=== PATIENT | male | born 1975 | race American Indian/Alaskan Native ===

== ENCOUNTER 2018-11-18 09:23 | Outpatient (CLI) | payer MEDICARE ==
[2018-11-18] MEDS ORDERED: XYLOCAINE TOPICAL 4% TP ONE (09:41)
[2018-11-18] MEDS ORDERED: AD OINTMENT TP PRN (09:42)
== END 2018-11-18 09:24 | disposition home or self-care (01) ==
LOC: WOUND 09:23
PROVIDERS: ATTEND Surgery
DX: L97.812 Non-pressure chronic ulcer of other part of right lower leg with fat layer exposed (principal); I87.2 Venous insufficiency (chronic) (peripheral); I89.0 Lymphedema, not elsewhere classified
CPT/HCPCS: A6250

== ENCOUNTER 2018-11-28 10:24 | Outpatient (CLI) | payer MEDICARE ==
[2018-11-28] MEDS ORDERED: XYLOCAINE TOPICAL 4% TP ONE (12:15)
== END 2018-11-28 10:25 | disposition home or self-care (01) ==
LOC: WOUND 10:24
PROVIDERS: ATTEND Surgery
DX: I87.311 Chronic venous hypertension (idiopathic) with ulcer of right lower extremity (principal); L97.812 Non-pressure chronic ulcer of other part of right lower leg with fat layer exposed; E66.01 Morbid (severe) obesity due to excess calories; I89.0 Lymphedema, not elsewhere classified; I87.8 Other specified disorders of veins; Z68.45 Body mass index [BMI] 70 or greater, adult

== ENCOUNTER 2018-12-05 10:39 | Outpatient (CLI) | payer MEDICARE ==
[~2018-12-05 10:39] MED LIST: ZOSYN/NS 4.5GM/100ML 0 GM/0 ML VIAL IV ONE
[2018-12-05] MEDS ORDERED: XYLOCAINE TOPICAL 4% TP ONE (10:55)
[2018-12-05] MEDS ORDERED: AD OINTMENT TP PRN (10:55)
[2018-12-05] MEDS ORDERED: SILVER NITRATE TP ONE (10:56)
== END 2018-12-05 10:40 | disposition home or self-care (01) ==
LOC: WOUND 10:39
PROVIDERS: ATTEND Surgery
DX: I87.311 Chronic venous hypertension (idiopathic) with ulcer of right lower extremity (principal); L97.812 Non-pressure chronic ulcer of other part of right lower leg with fat layer exposed; I89.0 Lymphedema, not elsewhere classified; E66.01 Morbid (severe) obesity due to excess calories; Z68.45 Body mass index [BMI] 70 or greater, adult
CPT/HCPCS: A6250; J2543

== ENCOUNTER 2018-12-12 10:38 | Outpatient (CLI) | payer MEDICARE ==
[2018-12-12] MEDS ORDERED: XYLOCAINE TOPICAL 4% TP ONE (11:00)
== END 2018-12-12 10:39 | disposition home or self-care (01) ==
LOC: WOUND 10:38
PROVIDERS: ATTEND Surgery
DX: I87.311 Chronic venous hypertension (idiopathic) with ulcer of right lower extremity (principal); L97.812 Non-pressure chronic ulcer of other part of right lower leg with fat layer exposed; L84 Corns and callosities; E66.01 Morbid (severe) obesity due to excess calories; Z68.45 Body mass index [BMI] 70 or greater, adult; I89.0 Lymphedema, not elsewhere classified

== ENCOUNTER 2018-12-17 10:50 | Outpatient (CLI) | payer MEDICARE ==
--- NOTE | 2018-12-17 17:24 | Vascular Lab Report ---
FINAL REPORT EXAM: VL VENOUS DUPLEX LE BILAT HISTORY: Chronic venous hypertension(idiopathic)with ulcer of right lower history of DVT TECHNIQUE: Grayscale, color flow and Doppler waveform imaging of the lower extremities was performed . Comparison: None FINDINGS: The study is degraded by artifact a created by body habitus. Right lower extremity: Flow is demonstrated in the right common femoral, superficial femoral and popliteal veins. There is incomplete compression of the common femoral and superficial femoral veins. There is demonstration of augmentation in the common femoral, superficial and popliteal veins with ev idence of reflux with augmentation at the level of the popliteal vein. There is a hypoechoic structure in the right groin that measures approximately 2.5 centimeters x 1.4 centimeters 7.8 centimeters in the maximal dimension and demonstrates the the central increased echog enicity and central flow. This may represent an enlarged lymph node or group of lymph nodes. Left lower extremity: Flow is demonstrated in the left common femoral, superficial femoral and popliteal veins. There is incomplete compression of the common femoral vein. There is demonstration of augmentation in the common femoral, superficial femoral and popliteal veins with evidence of reflux with augmentation at the level of the popliteal vein. There is a hypoechoic structure in the left groin that measures approximately 2.5 centimeters in the maximum dimension with central flow. This may represent an enlarged lymph node. IMPRESSION: 1. Study degraded by artifact created by large body habitus. 2. Findings suggestive of incomplete occlusive acute DVT versus sequela of chronic DVT in the right c ommon femoral and superficial femoral veins and left common femoral vein. 3. Evidence of venous insufficiency at the level of the popliteal veins bilaterally. 4. Probable bilateral inguinal adenopathy. Comparison with previous imaging studies is recommended.
== END 2018-12-17 10:51 | disposition home or self-care (01) ==
LOC: VAS 10:50
PROVIDERS: ATTEND Surgery
DX: E66.01 Morbid (severe) obesity due to excess calories (principal); I87.311 Chronic venous hypertension (idiopathic) with ulcer of right lower extremity
CPT/HCPCS: 93970

== ENCOUNTER 2018-12-26 10:32 | Outpatient (CLI) | payer MEDICARE | END 2018-12-26 10:33 | disposition home or self-care (01) | LOC: WOUND 10:32 | CPT/HCPCS: 29580 ==

== ENCOUNTER 2018-12-30 13:18 | Outpatient (CLI) | payer MEDICARE | END 2018-12-30 13:19 | disposition home or self-care (01) | LOC: WOUND 13:18 | CPT/HCPCS: 29580 ==

== ENCOUNTER 2019-01-02 10:36 | Outpatient (CLI) | payer MEDICARE | END 2019-01-02 10:37 | disposition home or self-care (01) | LOC: WOUND 10:36 ==

== ENCOUNTER 2019-01-09 10:23 | Outpatient (CLI) | payer MEDICARE | END 2019-01-09 10:24 | disposition home or self-care (01) | LOC: WOUND 10:23 | CPT/HCPCS: 29581 ==

== ENCOUNTER 2019-01-13 13:49 | Outpatient (CLI) | payer MEDICARE | END 2019-01-13 13:50 | disposition home or self-care (01) | LOC: WOUND 13:49 | CPT/HCPCS: 29581 ==

== ENCOUNTER 2019-01-16 10:29 | Outpatient (CLI) | payer MEDICARE ==
[2019-01-16] MEDS ORDERED: XYLOCAINE TOPICAL 4% TP ONE (10:37)
== END 2019-01-16 10:30 | disposition home or self-care (01) ==
LOC: WOUND 10:29
PROVIDERS: ATTEND Surgery
DX: I87.311 Chronic venous hypertension (idiopathic) with ulcer of right lower extremity (principal); L97.811 Non-pressure chronic ulcer of other part of right lower leg limited to breakdown of skin; E66.01 Morbid (severe) obesity due to excess calories; I89.0 Lymphedema, not elsewhere classified; Z68.45 Body mass index [BMI] 70 or greater, adult
CPT/HCPCS: 29581

== ENCOUNTER 2019-01-23 10:33 | Outpatient (CLI) | payer MEDICARE ==
[2019-01-23] MEDS ORDERED: XYLOCAINE TOPICAL 4% TP ONE (11:30)
== END 2019-01-23 10:34 | disposition home or self-care (01) ==
LOC: WOUND 10:33
PROVIDERS: ATTEND Surgery
DX: I87.311 Chronic venous hypertension (idiopathic) with ulcer of right lower extremity (principal); L97.811 Non-pressure chronic ulcer of other part of right lower leg limited to breakdown of skin; E66.01 Morbid (severe) obesity due to excess calories; I89.0 Lymphedema, not elsewhere classified; Z68.44 Body mass index [BMI] 60.0-69.9, adult
CPT/HCPCS: 29581

== ENCOUNTER 2019-01-27 13:48 | Outpatient (CLI) | payer MEDICARE | END 2019-01-27 13:49 | disposition home or self-care (01) | LOC: WOUND 13:48 | CPT/HCPCS: 29580 ==

== ENCOUNTER 2019-01-30 09:54 | Outpatient (CLI) | payer MEDICARE ==
[2019-01-30] MEDS ORDERED: AD OINTMENT TP PRN (10:00)
[2019-01-30] MEDS ORDERED: XYLOCAINE TOPICAL 4% TP ONE (11:00)
== END 2019-01-30 09:55 | disposition home or self-care (01) ==
LOC: WOUND 09:54
PROVIDERS: ATTEND Surgery
DX: I87.311 Chronic venous hypertension (idiopathic) with ulcer of right lower extremity (principal); L97.812 Non-pressure chronic ulcer of other part of right lower leg with fat layer exposed; E66.01 Morbid (severe) obesity due to excess calories; I87.8 Other specified disorders of veins; I89.0 Lymphedema, not elsewhere classified; Z68.44 Body mass index [BMI] 60.0-69.9, adult
CPT/HCPCS: 29580; A6250

== ENCOUNTER 2019-02-03 13:27 | Outpatient (CLI) | payer MEDICARE | END 2019-02-03 13:28 | disposition home or self-care (01) | LOC: WOUND 13:27 | PROVIDERS: ATTEND Surgery | DX: I87.311 Chronic venous hypertension (idiopathic) with ulcer of right lower extremity (principal); L97.811 Non-pressure chronic ulcer of other part of right lower leg limited to breakdown of skin; I87.8 Other specified disorders of veins; I89.0 Lymphedema, not elsewhere classified; E66.01 Morbid (severe) obesity due to excess calories; Z68.44 Body mass index [BMI] 60.0-69.9, adult | CPT/HCPCS: 29580 ==

== ENCOUNTER 2019-02-07 10:26 | Outpatient (CLI) | payer MEDICARE ==
[2019-02-07] MEDS ORDERED: XYLOCAINE TOPICAL 4% TP ONE (10:39)
[2019-02-08] MEDS ORDERED: AD OINTMENT TP SCH (10:00)
== END 2019-02-07 10:27 | disposition home or self-care (01) ==
LOC: WOUND 10:26
PROVIDERS: ATTEND Surgery
DX: I87.311 Chronic venous hypertension (idiopathic) with ulcer of right lower extremity (principal); L97.812 Non-pressure chronic ulcer of other part of right lower leg with fat layer exposed; I87.8 Other specified disorders of veins; I89.0 Lymphedema, not elsewhere classified; E66.01 Morbid (severe) obesity due to excess calories; Z68.44 Body mass index [BMI] 60.0-69.9, adult
CPT/HCPCS: 29581

== ENCOUNTER 2019-02-10 13:42 | Outpatient (CLI) | payer MEDICARE | END 2019-02-10 13:43 | disposition home or self-care (01) | LOC: WOUND 13:42 | PROVIDERS: ATTEND Surgery | DX: I87.311 Chronic venous hypertension (idiopathic) with ulcer of right lower extremity (principal); L97.812 Non-pressure chronic ulcer of other part of right lower leg with fat layer exposed; I89.0 Lymphedema, not elsewhere classified; E66.01 Morbid (severe) obesity due to excess calories; Z68.44 Body mass index [BMI] 60.0-69.9, adult | CPT/HCPCS: 29581 ==

== ENCOUNTER 2019-02-13 10:33 | Outpatient (CLI) | payer MEDICARE | END 2019-02-13 10:34 | disposition home or self-care (01) | LOC: WOUND 10:33 | PROVIDERS: ATTEND Surgery | DX: I87.311 Chronic venous hypertension (idiopathic) with ulcer of right lower extremity (principal); L97.812 Non-pressure chronic ulcer of other part of right lower leg with fat layer exposed; E66.01 Morbid (severe) obesity due to excess calories; I87.8 Other specified disorders of veins; I89.0 Lymphedema, not elsewhere classified; Z68.44 Body mass index [BMI] 60.0-69.9, adult | CPT/HCPCS: 29581 ==

== ENCOUNTER 2019-02-17 13:53 | Outpatient (CLI) | payer MEDICARE ==
[2019-02-17] MEDS ORDERED: AD OINTMENT TP SCH (15:00)
[2019-02-17] MEDS ORDERED: XYLOCAINE TOPICAL 4% TP ONE (15:00)
[2019-02-17] MEDS ORDERED: DIPRIVAN 10 MG/ML IV ONE (15:14)
[2019-02-17] MEDS ORDERED: DECADRON ONE (15:14)
[2019-02-17] MEDS ORDERED: SUBLIMAZE ONE (15:14)
[2019-02-17] MEDS ORDERED: ZOFRAN ONE (15:14)
[2019-02-17] MEDS ORDERED: XYLOCAINE MPF 2% ONE (15:14)
[2019-02-17] MEDS ORDERED: TORADOL ONE (15:14)
== END 2019-02-17 13:54 | disposition home or self-care (01) ==
LOC: WOUND 13:53
PROVIDERS: ATTEND Surgery
DX: I87.311 Chronic venous hypertension (idiopathic) with ulcer of right lower extremity (principal); L97.812 Non-pressure chronic ulcer of other part of right lower leg with fat layer exposed; E66.01 Morbid (severe) obesity due to excess calories; I87.8 Other specified disorders of veins; I89.0 Lymphedema, not elsewhere classified; Z68.44 Body mass index [BMI] 60.0-69.9, adult
CPT/HCPCS: 29581; J1100; J1885; J2405; J2704; J3010

== ENCOUNTER 2019-02-20 10:30 | Outpatient (CLI) | payer MEDICARE ==
[2019-02-20] MEDS ORDERED: XYLOCAINE TOPICAL 4% TP NR (11:00)
[2019-02-20] MEDS ORDERED: AD OINTMENT TP PRN (11:00)
== END 2019-02-20 10:31 | disposition home or self-care (01) ==
LOC: WOUND 10:30
PROVIDERS: ATTEND Surgery
DX: I87.311 Chronic venous hypertension (idiopathic) with ulcer of right lower extremity (principal); L97.812 Non-pressure chronic ulcer of other part of right lower leg with fat layer exposed; E66.01 Morbid (severe) obesity due to excess calories; I87.8 Other specified disorders of veins; I89.0 Lymphedema, not elsewhere classified; Z68.44 Body mass index [BMI] 60.0-69.9, adult
CPT/HCPCS: 29581; A6250

== ENCOUNTER 2019-02-25 11:33 | Outpatient (CLI) | payer MEDICARE | END 2019-02-25 11:34 | disposition home or self-care (01) | LOC: WOUND 11:33 | PROVIDERS: ATTEND Surgery | DX: I87.311 Chronic venous hypertension (idiopathic) with ulcer of right lower extremity (principal); L97.812 Non-pressure chronic ulcer of other part of right lower leg with fat layer exposed; E66.01 Morbid (severe) obesity due to excess calories; I87.8 Other specified disorders of veins; I89.0 Lymphedema, not elsewhere classified; Z68.44 Body mass index [BMI] 60.0-69.9, adult | CPT/HCPCS: 29581 ==

== ENCOUNTER 2019-03-04 12:35 | Outpatient (CLI) | payer MEDICARE ==
[2019-03-04] MEDS ORDERED: AD OINTMENT TP SCH (13:00)
== END 2019-03-04 12:36 | disposition home or self-care (01) ==
LOC: WOUND 12:35
PROVIDERS: ATTEND Surgery
DX: I87.311 Chronic venous hypertension (idiopathic) with ulcer of right lower extremity (principal); L97.812 Non-pressure chronic ulcer of other part of right lower leg with fat layer exposed; E66.01 Morbid (severe) obesity due to excess calories; I87.8 Other specified disorders of veins; I89.0 Lymphedema, not elsewhere classified; Z68.44 Body mass index [BMI] 60.0-69.9, adult
CPT/HCPCS: 29581; A6250

== ENCOUNTER 2019-03-06 11:00 | Outpatient (CLI) | payer MEDICARE ==
[2019-03-06] MEDS ORDERED: XYLOCAINE TOPICAL 2% 30ML TP ONE (12:06)
== END 2019-03-06 11:01 | disposition home or self-care (01) ==
LOC: WOUND 11:00
PROVIDERS: ATTEND Surgery
DX: I87.311 Chronic venous hypertension (idiopathic) with ulcer of right lower extremity (principal); L97.812 Non-pressure chronic ulcer of other part of right lower leg with fat layer exposed; E66.01 Morbid (severe) obesity due to excess calories; I87.8 Other specified disorders of veins; I89.0 Lymphedema, not elsewhere classified; Z68.44 Body mass index [BMI] 60.0-69.9, adult
CPT/HCPCS: 29581

== ENCOUNTER 2019-03-13 10:38 | Outpatient (CLI) | payer MEDICARE | END 2019-03-13 10:39 | disposition home or self-care (01) | LOC: WOUND 10:38 | PROVIDERS: ATTEND Surgery | DX: I87.311 Chronic venous hypertension (idiopathic) with ulcer of right lower extremity (principal); L97.812 Non-pressure chronic ulcer of other part of right lower leg with fat layer exposed; I87.8 Other specified disorders of veins; I89.0 Lymphedema, not elsewhere classified; E66.01 Morbid (severe) obesity due to excess calories; Z68.44 Body mass index [BMI] 60.0-69.9, adult | CPT/HCPCS: 29581 ==

== ENCOUNTER 2019-03-20 10:28 | Outpatient (CLI) | payer MEDICARE | END 2019-03-20 10:29 | disposition home or self-care (01) | LOC: WOUND 10:28 | PROVIDERS: ATTEND Surgery | DX: I87.311 Chronic venous hypertension (idiopathic) with ulcer of right lower extremity (principal); L97.812 Non-pressure chronic ulcer of other part of right lower leg with fat layer exposed; I89.0 Lymphedema, not elsewhere classified; E66.01 Morbid (severe) obesity due to excess calories; Z68.44 Body mass index [BMI] 60.0-69.9, adult | CPT/HCPCS: 29581 ==

== ENCOUNTER 2019-03-27 10:19 | Outpatient (CLI) | payer MEDICARE | END 2019-03-27 10:20 | disposition home or self-care (01) | LOC: WOUND 10:19 | PROVIDERS: ATTEND Surgery | DX: I87.311 Chronic venous hypertension (idiopathic) with ulcer of right lower extremity (principal); L97.812 Non-pressure chronic ulcer of other part of right lower leg with fat layer exposed; I89.0 Lymphedema, not elsewhere classified; E66.01 Morbid (severe) obesity due to excess calories; Z68.44 Body mass index [BMI] 60.0-69.9, adult | CPT/HCPCS: 29581 ==

== ENCOUNTER 2019-04-01 14:03 | Outpatient (CLI) | payer MEDICARE | END 2019-04-01 14:04 | disposition home or self-care (01) | LOC: WOUND 14:03 | PROVIDERS: ATTEND Surgery | DX: I87.311 Chronic venous hypertension (idiopathic) with ulcer of right lower extremity (principal); L97.812 Non-pressure chronic ulcer of other part of right lower leg with fat layer exposed; I89.0 Lymphedema, not elsewhere classified; E66.01 Morbid (severe) obesity due to excess calories; Z68.44 Body mass index [BMI] 60.0-69.9, adult | CPT/HCPCS: 29581 ==

== ENCOUNTER 2019-04-03 10:35 | Outpatient (CLI) | payer MEDICARE | END 2019-04-03 10:36 | disposition home or self-care (01) | LOC: WOUND 10:35 | PROVIDERS: ATTEND Surgery | DX: I87.311 Chronic venous hypertension (idiopathic) with ulcer of right lower extremity (principal); L97.812 Non-pressure chronic ulcer of other part of right lower leg with fat layer exposed; I89.0 Lymphedema, not elsewhere classified; E66.01 Morbid (severe) obesity due to excess calories; Z68.44 Body mass index [BMI] 60.0-69.9, adult | CPT/HCPCS: 29581 ==

== ENCOUNTER 2019-04-07 13:23 | Outpatient (CLI) | payer MEDICARE | END 2019-04-07 13:24 | disposition home or self-care (01) | LOC: WOUND 13:23 | PROVIDERS: ATTEND Surgery | DX: I87.311 Chronic venous hypertension (idiopathic) with ulcer of right lower extremity (principal); L97.812 Non-pressure chronic ulcer of other part of right lower leg with fat layer exposed; I89.0 Lymphedema, not elsewhere classified; E66.01 Morbid (severe) obesity due to excess calories; Z68.44 Body mass index [BMI] 60.0-69.9, adult | CPT/HCPCS: 29581 ==

== ENCOUNTER 2019-04-10 10:33 | Outpatient (CLI) | payer MEDICARE | END 2019-04-10 10:34 | disposition home or self-care (01) | LOC: WOUND 10:33 | PROVIDERS: ATTEND Surgery | DX: I87.311 Chronic venous hypertension (idiopathic) with ulcer of right lower extremity (principal); L97.818 Non-pressure chronic ulcer of other part of right lower leg with other specified severity; I87.2 Venous insufficiency (chronic) (peripheral); I89.0 Lymphedema, not elsewhere classified; E66.01 Morbid (severe) obesity due to excess calories; Z68.44 Body mass index [BMI] 60.0-69.9, adult | CPT/HCPCS: 29581 ==

== ENCOUNTER 2019-04-17 11:00 | Outpatient (CLI) | payer MEDICARE | END 2019-04-17 11:01 | disposition home or self-care (01) | LOC: WOUND 11:00 | PROVIDERS: ATTEND Surgery | DX: S81.801D Unspecified open wound, right lower leg, subsequent encounter (principal); I89.0 Lymphedema, not elsewhere classified; X58.XXXD Exposure to other specified factors, subsequent encounter | CPT/HCPCS: 29581 ==

== ENCOUNTER 2019-06-18 08:16 | Outpatient (CLI) | payer MEDICARE ==
[2019-06-18] MEDS ORDERED: XYLOCAINE TOPICAL 4% TP ONE (09:00)
== END 2019-06-18 08:17 | disposition home or self-care (01) ==
LOC: WOUND 08:16
PROVIDERS: ATTEND Surgery
DX: S81.801D Unspecified open wound, right lower leg, subsequent encounter (principal); I89.0 Lymphedema, not elsewhere classified; X58.XXXD Exposure to other specified factors, subsequent encounter
CPT/HCPCS: 29581

== ENCOUNTER 2019-06-25 07:50 | Outpatient (CLI) | payer MEDICARE ==
[2019-06-25] MEDS ORDERED: XYLOCAINE TOPICAL 4% TP ONE (08:30)
== END 2019-06-25 07:51 | disposition home or self-care (01) ==
LOC: WOUND 07:50
PROVIDERS: ATTEND Surgery
DX: S81.801D Unspecified open wound, right lower leg, subsequent encounter (principal); I89.0 Lymphedema, not elsewhere classified; X58.XXXD Exposure to other specified factors, subsequent encounter
CPT/HCPCS: 29580

== ENCOUNTER 2019-07-02 07:50 | Outpatient (CLI) | payer MEDICARE ==
[2019-07-02] MEDS ORDERED: XYLOCAINE TOPICAL 4% TP ONE (08:30)
== END 2019-07-02 07:51 | disposition home or self-care (01) ==
LOC: WOUND 07:50
PROVIDERS: ATTEND Surgery
DX: S81.801D Unspecified open wound, right lower leg, subsequent encounter (principal); I89.0 Lymphedema, not elsewhere classified; X58.XXXD Exposure to other specified factors, subsequent encounter
CPT/HCPCS: 29580

== ENCOUNTER 2019-07-09 07:49 | Outpatient (CLI) | payer MEDICARE | END 2019-07-09 07:50 | disposition home or self-care (01) | LOC: WOUND 07:49 | PROVIDERS: ATTEND Surgery | DX: S81.801D Unspecified open wound, right lower leg, subsequent encounter (principal); I89.0 Lymphedema, not elsewhere classified; X58.XXXD Exposure to other specified factors, subsequent encounter | CPT/HCPCS: 29581 ==

== ENCOUNTER 2019-07-17 07:53 | Outpatient (CLI) | payer MEDICARE | END 2019-07-17 07:54 | disposition home or self-care (01) | LOC: WOUND 07:53 | PROVIDERS: ATTEND Surgery | DX: S81.801D Unspecified open wound, right lower leg, subsequent encounter (principal); I89.0 Lymphedema, not elsewhere classified; X58.XXXD Exposure to other specified factors, subsequent encounter | CPT/HCPCS: 29581 ==

== ENCOUNTER 2019-07-21 12:50 | Outpatient (CLI) | payer MEDICARE | END 2019-07-21 12:51 | disposition home or self-care (01) | LOC: WOUND 12:50 | PROVIDERS: ATTEND Surgery | DX: S81.801D Unspecified open wound, right lower leg, subsequent encounter (principal); I89.0 Lymphedema, not elsewhere classified; X58.XXXD Exposure to other specified factors, subsequent encounter | CPT/HCPCS: 29581 ==

== ENCOUNTER 2019-07-24 07:54 | Outpatient (CLI) | payer MEDICARE | END 2019-07-24 07:55 | disposition home or self-care (01) | LOC: WOUND 07:54 | PROVIDERS: ATTEND Surgery | DX: S81.801D Unspecified open wound, right lower leg, subsequent encounter (principal); I89.0 Lymphedema, not elsewhere classified; X58.XXXD Exposure to other specified factors, subsequent encounter | CPT/HCPCS: 29581 ==

== ENCOUNTER 2019-08-07 07:58 | Outpatient (CLI) | payer MEDICARE ==
[2019-08-07] MEDS ORDERED: LIDOCAINE (4%) 40 MG/ML TOPICAL SOLN 50 ML BOTTLE TP ONE (08:30)
[2019-08-07] MEDS ORDERED: SILVER NITRATE APPLICATOR 1 EA TP ONE (08:30)
== END 2019-08-07 07:59 | disposition home or self-care (01) ==
LOC: WOUND 07:58
PROVIDERS: ATTEND Surgery
DX: S81.801D Unspecified open wound, right lower leg, subsequent encounter (principal); I89.0 Lymphedema, not elsewhere classified; X58.XXXD Exposure to other specified factors, subsequent encounter
CPT/HCPCS: 29581

== ENCOUNTER 2019-11-19 09:57 | Outpatient (CLI) | payer MEDICARE ==
[2019-11-19] MEDS ORDERED: LIDOCAINE (4%) 40 MG/ML TOPICAL SOLN 50 ML BOTTLE TP ONE (10:30)
[2019-11-19] MEDS ORDERED: VITAMIN A & D OINT 56.7 GM TP SCH (11:00)
== END 2019-11-19 09:58 | disposition home or self-care (01) ==
LOC: WOUND 09:57
PROVIDERS: ATTEND Surgery
DX: S81.801D Unspecified open wound, right lower leg, subsequent encounter (principal); I89.0 Lymphedema, not elsewhere classified; X58.XXXD Exposure to other specified factors, subsequent encounter
CPT/HCPCS: 11042; 11045; 29581; G0463; 99214; A6250

== ENCOUNTER 2019-11-26 10:00 | Outpatient (CLI) | payer MEDICARE ==
[2019-11-26] MEDS ORDERED: LIDOCAINE (4%) 40 MG/ML TOPICAL SOLN 50 ML BOTTLE TP ONE (10:30)
== END 2019-11-26 10:01 | disposition home or self-care (01) ==
LOC: WOUND 10:00
PROVIDERS: ATTEND Surgery
DX: I87.311 Chronic venous hypertension (idiopathic) with ulcer of right lower extremity (principal); L97.812 Non-pressure chronic ulcer of other part of right lower leg with fat layer exposed; I89.0 Lymphedema, not elsewhere classified
CPT/HCPCS: 29581

== ENCOUNTER 2019-11-28 11:00 | Outpatient (CLI) | payer MEDICARE | END 2019-11-28 11:01 | disposition home or self-care (01) | LOC: WOUND 11:00 | PROVIDERS: ATTEND Surgery | DX: I87.311 Chronic venous hypertension (idiopathic) with ulcer of right lower extremity (principal); L97.812 Non-pressure chronic ulcer of other part of right lower leg with fat layer exposed; I89.0 Lymphedema, not elsewhere classified | CPT/HCPCS: 29581 ==

== ENCOUNTER 2019-12-03 09:13 | Outpatient (CLI) | payer MEDICARE ==
[2019-12-03] MEDS ORDERED: LIDOCAINE (4%) 40 MG/ML TOPICAL SOLN 50 ML BOTTLE TP ONE (10:00)
== END 2019-12-03 09:14 | disposition home or self-care (01) ==
LOC: WOUND 09:13
PROVIDERS: ATTEND Surgery
DX: I87.311 Chronic venous hypertension (idiopathic) with ulcer of right lower extremity (principal); L97.812 Non-pressure chronic ulcer of other part of right lower leg with fat layer exposed; I89.0 Lymphedema, not elsewhere classified
CPT/HCPCS: 29581

== ENCOUNTER 2019-12-05 13:46 | Outpatient (CLI) | payer MEDICARE | END 2019-12-05 13:47 | disposition home or self-care (01) | LOC: WOUND 13:46 | PROVIDERS: ATTEND Surgery | DX: I87.311 Chronic venous hypertension (idiopathic) with ulcer of right lower extremity (principal); L97.812 Non-pressure chronic ulcer of other part of right lower leg with fat layer exposed; I89.0 Lymphedema, not elsewhere classified | CPT/HCPCS: 29581 ==

== ENCOUNTER 2019-12-16 13:57 | Outpatient (CLI) | payer MEDICARE ==
[2019-12-16] MEDS ORDERED: LIDOCAINE (4%) 40 MG/ML TOPICAL SOLN 50 ML BOTTLE TP ONE (13:59)
[2019-12-16] MEDS ORDERED: SILVER NITRATE APPLICATOR 1 EA TP ONE (14:16)
== END 2019-12-16 13:58 | disposition home or self-care (01) ==
LOC: WOUND 13:57
PROVIDERS: ATTEND Surgery
DX: I87.311 Chronic venous hypertension (idiopathic) with ulcer of right lower extremity (principal); L97.812 Non-pressure chronic ulcer of other part of right lower leg with fat layer exposed; I89.0 Lymphedema, not elsewhere classified
CPT/HCPCS: 29581

== ENCOUNTER 2019-12-23 09:51 | Outpatient (CLI) | payer MEDICARE ==
[2019-12-23] MEDS ORDERED: LIDOCAINE (4%) 40 MG/ML TOPICAL SOLN 50 ML BOTTLE TP ONE (10:30)
== END 2019-12-23 09:52 | disposition home or self-care (01) ==
LOC: WOUND 09:51
PROVIDERS: ATTEND Surgery
DX: I87.311 Chronic venous hypertension (idiopathic) with ulcer of right lower extremity (principal); L97.812 Non-pressure chronic ulcer of other part of right lower leg with fat layer exposed; I89.0 Lymphedema, not elsewhere classified
CPT/HCPCS: 29581

== ENCOUNTER 2019-12-26 13:47 | Outpatient (CLI) | payer MEDICARE | END 2019-12-26 13:48 | disposition home or self-care (01) | LOC: WOUND 13:47 | PROVIDERS: ATTEND Surgery | DX: I87.311 Chronic venous hypertension (idiopathic) with ulcer of right lower extremity (principal); L97.812 Non-pressure chronic ulcer of other part of right lower leg with fat layer exposed; I89.0 Lymphedema, not elsewhere classified | CPT/HCPCS: 29581 ==

== ENCOUNTER 2019-12-30 09:57 | Outpatient (CLI) | payer MEDICARE ==
[2019-12-30] MEDS ORDERED: LIDOCAINE (4%) 40 MG/ML TOPICAL SOLN 50 ML BOTTLE TP ONE (10:46)
== END 2019-12-30 09:58 | disposition home or self-care (01) ==
LOC: WOUND 09:57
PROVIDERS: ATTEND Surgery
DX: I87.311 Chronic venous hypertension (idiopathic) with ulcer of right lower extremity (principal); L97.812 Non-pressure chronic ulcer of other part of right lower leg with fat layer exposed; I89.0 Lymphedema, not elsewhere classified
CPT/HCPCS: 29581

== ENCOUNTER 2020-01-02 14:02 | Outpatient (CLI) | payer MEDICARE | END 2020-01-02 14:03 | disposition home or self-care (01) | LOC: WOUND 14:02 | PROVIDERS: ATTEND Surgery | DX: I87.311 Chronic venous hypertension (idiopathic) with ulcer of right lower extremity (principal); L97.812 Non-pressure chronic ulcer of other part of right lower leg with fat layer exposed; I89.0 Lymphedema, not elsewhere classified | CPT/HCPCS: 29581 ==

== ENCOUNTER 2020-01-06 09:51 | Outpatient (CLI) | payer MEDICARE ==
[2020-01-06] MEDS ORDERED: LIDOCAINE (4%) 40 MG/ML TOPICAL SOLN 50 ML BOTTLE TP SCH (10:15)
== END 2020-01-06 09:52 | disposition home or self-care (01) ==
LOC: WOUND 09:51
PROVIDERS: ATTEND Surgery
DX: I87.311 Chronic venous hypertension (idiopathic) with ulcer of right lower extremity (principal); L97.812 Non-pressure chronic ulcer of other part of right lower leg with fat layer exposed; I89.0 Lymphedema, not elsewhere classified
CPT/HCPCS: 29581

== ENCOUNTER 2020-01-16 13:48 | Outpatient (CLI) | payer MEDICARE | END 2020-01-16 13:49 | disposition home or self-care (01) | LOC: WOUND 13:48 | PROVIDERS: ATTEND Surgery | DX: I87.311 Chronic venous hypertension (idiopathic) with ulcer of right lower extremity (principal); L97.812 Non-pressure chronic ulcer of other part of right lower leg with fat layer exposed; I89.0 Lymphedema, not elsewhere classified | CPT/HCPCS: 99213; G0463 ==

== ENCOUNTER 2020-01-23 14:30 | Outpatient (CLI) | payer MEDICARE | END 2020-01-23 14:31 | disposition home or self-care (01) | LOC: WOUND 14:30 | PROVIDERS: ATTEND Surgery | DX: I87.311 Chronic venous hypertension (idiopathic) with ulcer of right lower extremity (principal); L97.812 Non-pressure chronic ulcer of other part of right lower leg with fat layer exposed; I89.0 Lymphedema, not elsewhere classified | CPT/HCPCS: 29581 ==

== ENCOUNTER 2020-01-30 12:48 | Outpatient (CLI) | payer MEDICARE | END 2020-01-30 12:49 | disposition home or self-care (01) | LOC: WOUND 12:48 | PROVIDERS: ATTEND Surgery | DX: I87.311 Chronic venous hypertension (idiopathic) with ulcer of right lower extremity (principal); L97.812 Non-pressure chronic ulcer of other part of right lower leg with fat layer exposed; I89.0 Lymphedema, not elsewhere classified; I87.2 Venous insufficiency (chronic) (peripheral) | CPT/HCPCS: 29581 ==

== ENCOUNTER 2020-02-03 08:43 | Outpatient (CLI) | payer MEDICARE | END 2020-02-03 08:44 | disposition home or self-care (01) | LOC: WOUND 08:43 | PROVIDERS: ATTEND Surgery | DX: I87.311 Chronic venous hypertension (idiopathic) with ulcer of right lower extremity (principal); L97.812 Non-pressure chronic ulcer of other part of right lower leg with fat layer exposed; I89.0 Lymphedema, not elsewhere classified | CPT/HCPCS: 29581 ==

== ENCOUNTER 2020-02-10 08:43 | Outpatient (CLI) | payer MEDICARE | END 2020-02-10 08:44 | disposition home or self-care (01) | LOC: WOUND 08:43 | PROVIDERS: ATTEND Surgery | DX: I87.311 Chronic venous hypertension (idiopathic) with ulcer of right lower extremity (principal); L97.812 Non-pressure chronic ulcer of other part of right lower leg with fat layer exposed; I89.0 Lymphedema, not elsewhere classified | CPT/HCPCS: 29581 ==

== ENCOUNTER 2020-06-17 10:19 | Outpatient (CLI) | payer MEDICARE ==
[2020-06-17] MEDS ORDERED: LIDOCAINE (4%) 40 MG/ML TOPICAL SOLN 50 ML BOTTLE TP ONE (10:27)
== END 2020-06-17 10:20 | disposition home or self-care (01) ==
LOC: WOUND 10:19
PROVIDERS: ATTEND Surgery
DX: L97.812 Non-pressure chronic ulcer of other part of right lower leg with fat layer exposed (principal); I87.2 Venous insufficiency (chronic) (peripheral)
CPT/HCPCS: 29581

== ENCOUNTER 2020-06-24 08:58 | Outpatient (CLI) | payer MEDICARE ==
[2020-06-24] MEDS ORDERED: LIDOCAINE (4%) 40 MG/ML TOPICAL SOLN 50 ML BOTTLE TP ONE (09:11)
== END 2020-06-24 08:59 | disposition home or self-care (01) ==
LOC: WOUND 08:58
PROVIDERS: ATTEND Surgery
DX: L97.812 Non-pressure chronic ulcer of other part of right lower leg with fat layer exposed (principal); I89.0 Lymphedema, not elsewhere classified; I87.2 Venous insufficiency (chronic) (peripheral)
CPT/HCPCS: 29581

== ENCOUNTER 2020-06-28 11:06 | Outpatient (CLI) | payer MEDICARE | END 2020-06-28 11:07 | disposition home or self-care (01) | LOC: WOUND 11:06 | PROVIDERS: ATTEND Surgery | DX: L97.812 Non-pressure chronic ulcer of other part of right lower leg with fat layer exposed (principal); I87.2 Venous insufficiency (chronic) (peripheral); I89.0 Lymphedema, not elsewhere classified | CPT/HCPCS: 29581 ==

== ENCOUNTER 2020-07-01 08:53 | Outpatient (CLI) | payer MEDICARE ==
[2020-07-01] MEDS ORDERED: LIDOCAINE (4%) 40 MG/ML TOPICAL SOLN 50 ML BOTTLE TP ONE (10:00)
== END 2020-07-01 08:54 | disposition home or self-care (01) ==
LOC: WOUND 08:53
PROVIDERS: ATTEND Surgery
DX: L97.811 Non-pressure chronic ulcer of other part of right lower leg limited to breakdown of skin (principal); I87.2 Venous insufficiency (chronic) (peripheral); I89.0 Lymphedema, not elsewhere classified
CPT/HCPCS: 29581

== ENCOUNTER 2020-07-05 10:30 | Outpatient (CLI) | payer MEDICARE | END 2020-07-05 10:31 | disposition home or self-care (01) | LOC: WOUND 10:30 | PROVIDERS: ATTEND Surgery | DX: L97.811 Non-pressure chronic ulcer of other part of right lower leg limited to breakdown of skin (principal); I89.0 Lymphedema, not elsewhere classified; I87.2 Venous insufficiency (chronic) (peripheral) | CPT/HCPCS: 29581 ==

== ENCOUNTER 2020-07-13 08:38 | Outpatient (CLI) | payer MEDICARE | END 2020-07-13 08:39 | disposition home or self-care (01) | LOC: WOUND 08:38 | PROVIDERS: ATTEND Surgery | DX: L97.812 Non-pressure chronic ulcer of other part of right lower leg with fat layer exposed (principal); I89.0 Lymphedema, not elsewhere classified; I87.2 Venous insufficiency (chronic) (peripheral) | CPT/HCPCS: 29581 ==

== ENCOUNTER 2020-07-15 08:54 | Outpatient (CLI) | payer MEDICARE ==
[2020-07-15] MEDS ORDERED: LIDOCAINE (4%) 40 MG/ML TOPICAL SOLN 50 ML BOTTLE TP ONE (09:09)
[2020-07-15] MEDS ORDERED: VITAMIN A & D OINT 56.7 GM TP SCH (10:00)
== END 2020-07-15 08:55 | disposition home or self-care (01) ==
LOC: WOUND 08:54
PROVIDERS: ATTEND Surgery
DX: L97.812 Non-pressure chronic ulcer of other part of right lower leg with fat layer exposed (principal); I89.0 Lymphedema, not elsewhere classified; I87.2 Venous insufficiency (chronic) (peripheral)
CPT/HCPCS: 11042; 11045; A6250; 29581

== ENCOUNTER 2020-07-22 08:53 | Outpatient (CLI) | payer MEDICARE ==
[2020-07-22] MEDS ORDERED: LIDOCAINE (4%) 40 MG/ML TOPICAL SOLN 50 ML BOTTLE TP ONE (08:54)
== END 2020-07-22 08:54 | disposition home or self-care (01) ==
LOC: WOUND 08:53
PROVIDERS: ATTEND Surgery
DX: L97.812 Non-pressure chronic ulcer of other part of right lower leg with fat layer exposed (principal); I89.0 Lymphedema, not elsewhere classified; I87.2 Venous insufficiency (chronic) (peripheral)
CPT/HCPCS: 29581

== ENCOUNTER → 2020-07-30 | Outpatient (CLI) | payer MEDICARE | END | disposition home or self-care (01) | LOC: WOUND 10:00 | PROVIDERS: ATTEND Surgery | DX: L97.812 Non-pressure chronic ulcer of other part of right lower leg with fat layer exposed (principal); I87.2 Venous insufficiency (chronic) (peripheral); I89.0 Lymphedema, not elsewhere classified | CPT/HCPCS: 29581 ==

== ENCOUNTER 2020-08-02 10:53 | Outpatient (CLI) | payer MEDICARE | END 2020-08-02 10:54 | disposition home or self-care (01) | LOC: WOUND 10:53 | PROVIDERS: ATTEND Surgery | DX: L97.812 Non-pressure chronic ulcer of other part of right lower leg with fat layer exposed (principal); I87.2 Venous insufficiency (chronic) (peripheral); I89.0 Lymphedema, not elsewhere classified | CPT/HCPCS: 29581 ==

== ENCOUNTER 2020-08-05 08:26 | Outpatient (CLI) | payer MEDICARE ==
[2020-08-05] MEDS ORDERED: LIDOCAINE (4%) 40 MG/ML TOPICAL SOLN 50 ML BOTTLE TP ONE (08:44)
== END 2020-08-05 08:27 | disposition home or self-care (01) ==
LOC: WOUND 08:26
PROVIDERS: ATTEND Surgery
DX: L97.812 Non-pressure chronic ulcer of other part of right lower leg with fat layer exposed (principal); I87.8 Other specified disorders of veins; I87.2 Venous insufficiency (chronic) (peripheral)
CPT/HCPCS: 29581

== ENCOUNTER 2020-08-10 08:54 | Outpatient (CLI) | payer MEDICARE | END 2020-08-10 08:55 | disposition home or self-care (01) | LOC: WOUND 08:54 | PROVIDERS: ATTEND Surgery | DX: I87.311 Chronic venous hypertension (idiopathic) with ulcer of right lower extremity (principal); L97.812 Non-pressure chronic ulcer of other part of right lower leg with fat layer exposed; I87.8 Other specified disorders of veins; I87.2 Venous insufficiency (chronic) (peripheral) | CPT/HCPCS: 29581 ==

== ENCOUNTER 2020-08-12 09:16 | Outpatient (CLI) | payer MEDICARE ==
[~2020-08-12 09:16] MED LIST changes: +LIDOCAINE (4%) 40 MG/ML TOPICAL SOLN 50 ML BOTTLE TP ONE; -ZOSYN/NS 4.5GM/100ML 0 GM/0 ML VIAL IV ONE
== END 2020-08-12 09:17 | disposition home or self-care (01) ==
LOC: WOUND 09:16
PROVIDERS: ATTEND Surgery
DX: I87.311 Chronic venous hypertension (idiopathic) with ulcer of right lower extremity (principal); L97.812 Non-pressure chronic ulcer of other part of right lower leg with fat layer exposed; I87.8 Other specified disorders of veins; I87.2 Venous insufficiency (chronic) (peripheral)
CPT/HCPCS: 29581

== ENCOUNTER 2020-08-17 08:59 | Outpatient (CLI) | payer MEDICARE | END 2020-08-17 09:00 | disposition home or self-care (01) | LOC: WOUND 08:59 | PROVIDERS: ATTEND Surgery | DX: I87.311 Chronic venous hypertension (idiopathic) with ulcer of right lower extremity (principal); L97.812 Non-pressure chronic ulcer of other part of right lower leg with fat layer exposed; I87.8 Other specified disorders of veins; I87.2 Venous insufficiency (chronic) (peripheral) | CPT/HCPCS: 29581 ==

== ENCOUNTER 2020-08-19 08:31 | Outpatient (CLI) | payer MEDICARE ==
[2020-08-19] MEDS ORDERED: LIDOCAINE (4%) 40 MG/ML TOPICAL SOLN 50 ML BOTTLE TP NR (08:48)
== END 2020-08-19 08:32 | disposition home or self-care (01) ==
LOC: WOUND 08:31
PROVIDERS: ATTEND Surgery
DX: I87.311 Chronic venous hypertension (idiopathic) with ulcer of right lower extremity (principal); L97.812 Non-pressure chronic ulcer of other part of right lower leg with fat layer exposed; I87.8 Other specified disorders of veins; I87.2 Venous insufficiency (chronic) (peripheral)
CPT/HCPCS: 29581

== ENCOUNTER 2020-08-24 08:27 | Outpatient (CLI) | payer MEDICARE | END 2020-08-24 08:28 | disposition home or self-care (01) | LOC: WOUND 08:27 | PROVIDERS: ATTEND Surgery | DX: I87.311 Chronic venous hypertension (idiopathic) with ulcer of right lower extremity (principal); L97.812 Non-pressure chronic ulcer of other part of right lower leg with fat layer exposed; I87.2 Venous insufficiency (chronic) (peripheral); I89.0 Lymphedema, not elsewhere classified | CPT/HCPCS: 29581 ==

== ENCOUNTER 2020-08-26 09:03 | Outpatient (CLI) | payer MEDICARE ==
[2020-08-26] MEDS ORDERED: LIDOCAINE (4%) 40 MG/ML TOPICAL SOLN 50 ML BOTTLE TP ONE (09:06)
== END 2020-08-26 09:04 | disposition home or self-care (01) ==
LOC: WOUND 09:03
PROVIDERS: ATTEND Surgery
DX: I87.311 Chronic venous hypertension (idiopathic) with ulcer of right lower extremity (principal); L97.812 Non-pressure chronic ulcer of other part of right lower leg with fat layer exposed; I87.2 Venous insufficiency (chronic) (peripheral); I87.8 Other specified disorders of veins
CPT/HCPCS: 29581

== ENCOUNTER 2020-09-02 08:40 | Outpatient (CLI) | payer MEDICARE ==
[2020-09-02] MEDS ORDERED: LIDOCAINE (4%) 40 MG/ML TOPICAL SOLN 50 ML BOTTLE TP ONE (08:56)
== END 2020-09-02 08:41 | disposition home or self-care (01) ==
LOC: WOUND 08:40
PROVIDERS: ATTEND Surgery
DX: I87.311 Chronic venous hypertension (idiopathic) with ulcer of right lower extremity (principal); L97.812 Non-pressure chronic ulcer of other part of right lower leg with fat layer exposed; I87.2 Venous insufficiency (chronic) (peripheral); I89.0 Lymphedema, not elsewhere classified
CPT/HCPCS: 29581

== ENCOUNTER 2020-09-09 08:42 | Outpatient (CLI) | payer MEDICARE ==
[2020-09-09] MEDS ORDERED: LIDOCAINE (4%) 40 MG/ML TOPICAL SOLN 50 ML BOTTLE TP NR (08:47)
== END 2020-09-09 08:43 | disposition home or self-care (01) ==
LOC: WOUND 08:42
PROVIDERS: ATTEND Surgery
DX: I87.311 Chronic venous hypertension (idiopathic) with ulcer of right lower extremity (principal); L97.812 Non-pressure chronic ulcer of other part of right lower leg with fat layer exposed; I87.2 Venous insufficiency (chronic) (peripheral); I89.0 Lymphedema, not elsewhere classified
CPT/HCPCS: 29581

== ENCOUNTER 2020-09-14 08:39 | Outpatient (CLI) | payer MEDICARE | END 2020-09-14 08:40 | disposition home or self-care (01) | LOC: WOUND 08:39 | PROVIDERS: ATTEND Surgery | DX: I87.311 Chronic venous hypertension (idiopathic) with ulcer of right lower extremity (principal); L97.812 Non-pressure chronic ulcer of other part of right lower leg with fat layer exposed; I87.2 Venous insufficiency (chronic) (peripheral); I89.0 Lymphedema, not elsewhere classified | CPT/HCPCS: 29581 ==

== ENCOUNTER 2020-09-16 08:58 | Outpatient (CLI) | payer MEDICARE ==
[2020-09-16] MEDS ORDERED: LIDOCAINE (4%) 40 MG/ML TOPICAL SOLN 50 ML BOTTLE TP SCH (10:53)
== END 2020-09-16 08:59 | disposition home or self-care (01) ==
LOC: WOUND 08:58
PROVIDERS: ATTEND Surgery
DX: I87.311 Chronic venous hypertension (idiopathic) with ulcer of right lower extremity (principal); L97.812 Non-pressure chronic ulcer of other part of right lower leg with fat layer exposed; I87.2 Venous insufficiency (chronic) (peripheral); I89.0 Lymphedema, not elsewhere classified
CPT/HCPCS: 29581

== ENCOUNTER 2020-09-21 08:43 | Outpatient (CLI) | payer MEDICARE | END 2020-09-21 08:44 | disposition home or self-care (01) | LOC: WOUND 08:43 | PROVIDERS: ATTEND Internal Medicine | DX: I87.311 Chronic venous hypertension (idiopathic) with ulcer of right lower extremity (principal); L97.812 Non-pressure chronic ulcer of other part of right lower leg with fat layer exposed; I87.2 Venous insufficiency (chronic) (peripheral); I89.0 Lymphedema, not elsewhere classified | CPT/HCPCS: 29581 ==

== ENCOUNTER 2020-09-23 08:39 | Outpatient (CLI) | payer MEDICARE ==
[2020-09-23] MEDS ORDERED: LIDOCAINE (4%) 40 MG/ML TOPICAL SOLN 50 ML BOTTLE TP SCH (09:00)
== END 2020-09-23 08:40 | disposition home or self-care (01) ==
LOC: WOUND 08:39
PROVIDERS: ATTEND Surgery
DX: I87.311 Chronic venous hypertension (idiopathic) with ulcer of right lower extremity (principal); L97.812 Non-pressure chronic ulcer of other part of right lower leg with fat layer exposed; I87.2 Venous insufficiency (chronic) (peripheral); I89.0 Lymphedema, not elsewhere classified
CPT/HCPCS: 29581

== ENCOUNTER 2020-09-28 08:44 | Outpatient (CLI) | payer MEDICARE | END 2020-09-28 08:45 | disposition home or self-care (01) | LOC: WOUND 08:44 | PROVIDERS: ATTEND Surgery | DX: I87.311 Chronic venous hypertension (idiopathic) with ulcer of right lower extremity (principal); L97.812 Non-pressure chronic ulcer of other part of right lower leg with fat layer exposed; I87.2 Venous insufficiency (chronic) (peripheral); I89.0 Lymphedema, not elsewhere classified | CPT/HCPCS: 29581 ==

== ENCOUNTER 2020-10-05 08:31 | Outpatient (CLI) | payer MEDICARE | END 2020-10-05 08:32 | disposition home or self-care (01) | LOC: WOUND 08:31 | PROVIDERS: ATTEND Surgery | DX: I87.311 Chronic venous hypertension (idiopathic) with ulcer of right lower extremity (principal); L97.812 Non-pressure chronic ulcer of other part of right lower leg with fat layer exposed; I87.2 Venous insufficiency (chronic) (peripheral); I89.0 Lymphedema, not elsewhere classified | CPT/HCPCS: 29581; 99183; G0277 ==

== ENCOUNTER 2020-10-12 08:40 | Outpatient (CLI) | payer MEDICARE | END 2020-10-12 08:41 | disposition home or self-care (01) | LOC: WOUND 08:40 | PROVIDERS: ATTEND Surgery | DX: I87.311 Chronic venous hypertension (idiopathic) with ulcer of right lower extremity (principal); L97.812 Non-pressure chronic ulcer of other part of right lower leg with fat layer exposed; I87.2 Venous insufficiency (chronic) (peripheral); I89.0 Lymphedema, not elsewhere classified | CPT/HCPCS: 29581 ==

== ENCOUNTER 2020-10-14 08:51 | Outpatient (CLI) | payer MEDICARE | END 2020-10-14 08:52 | disposition home or self-care (01) | LOC: WOUND 08:51 | PROVIDERS: ATTEND Surgery | DX: I87.311 Chronic venous hypertension (idiopathic) with ulcer of right lower extremity (principal); L97.812 Non-pressure chronic ulcer of other part of right lower leg with fat layer exposed; I87.2 Venous insufficiency (chronic) (peripheral); I89.0 Lymphedema, not elsewhere classified | CPT/HCPCS: 29581 ==

== ENCOUNTER 2020-10-19 08:27 | Outpatient (CLI) | payer MEDICARE | END 2020-10-19 08:28 | disposition home or self-care (01) | LOC: WOUND 08:27 | PROVIDERS: ATTEND Surgery | DX: I87.311 Chronic venous hypertension (idiopathic) with ulcer of right lower extremity (principal); L97.812 Non-pressure chronic ulcer of other part of right lower leg with fat layer exposed; I87.2 Venous insufficiency (chronic) (peripheral); I89.0 Lymphedema, not elsewhere classified | CPT/HCPCS: 29581 ==

== ENCOUNTER 2020-10-21 08:47 | Outpatient (CLI) | payer MEDICARE ==
[2020-10-21] MEDS ORDERED: LIDOCAINE (4%) 40 MG/ML TOPICAL SOLN 50 ML BOTTLE TP ONE (09:21)
== END 2020-10-21 08:48 | disposition home or self-care (01) ==
LOC: WOUND 08:47
PROVIDERS: ATTEND Surgery
DX: I87.311 Chronic venous hypertension (idiopathic) with ulcer of right lower extremity (principal); L97.812 Non-pressure chronic ulcer of other part of right lower leg with fat layer exposed; I87.2 Venous insufficiency (chronic) (peripheral); I89.0 Lymphedema, not elsewhere classified
CPT/HCPCS: 29581

== ENCOUNTER 2020-10-26 08:45 | Outpatient (CLI) | payer MEDICARE | END 2020-10-26 08:46 | disposition home or self-care (01) | LOC: WOUND 08:45 | PROVIDERS: ATTEND Surgery | DX: I87.311 Chronic venous hypertension (idiopathic) with ulcer of right lower extremity (principal); L97.812 Non-pressure chronic ulcer of other part of right lower leg with fat layer exposed; I87.2 Venous insufficiency (chronic) (peripheral); I89.0 Lymphedema, not elsewhere classified | CPT/HCPCS: 29581 ==

== ENCOUNTER 2020-11-02 08:27 | Outpatient (CLI) | payer MEDICARE | END 2020-11-02 08:28 | disposition home or self-care (01) | LOC: WOUND 08:27 | PROVIDERS: ATTEND Surgery | DX: I87.311 Chronic venous hypertension (idiopathic) with ulcer of right lower extremity (principal); L97.812 Non-pressure chronic ulcer of other part of right lower leg with fat layer exposed; I87.2 Venous insufficiency (chronic) (peripheral); I89.0 Lymphedema, not elsewhere classified | CPT/HCPCS: 29581 ==

== ENCOUNTER 2020-11-09 08:24 | Outpatient (CLI) | payer MEDICARE | END 2020-11-09 08:25 | disposition home or self-care (01) | LOC: WOUND 08:24 | PROVIDERS: ATTEND Surgery | DX: I87.311 Chronic venous hypertension (idiopathic) with ulcer of right lower extremity (principal); L97.812 Non-pressure chronic ulcer of other part of right lower leg with fat layer exposed; I87.2 Venous insufficiency (chronic) (peripheral); I89.0 Lymphedema, not elsewhere classified | CPT/HCPCS: 29581 ==

== ENCOUNTER 2020-11-11 09:05 | Outpatient (CLI) | payer MEDICARE ==
[2020-11-11] MEDS ORDERED: LIDOCAINE (4%) 40 MG/ML TOPICAL SOLN 50 ML BOTTLE TP ONE (10:00)
== END 2020-11-11 09:06 | disposition home or self-care (01) ==
LOC: WOUND 09:05
PROVIDERS: ATTEND Surgery
DX: I87.311 Chronic venous hypertension (idiopathic) with ulcer of right lower extremity (principal); L97.812 Non-pressure chronic ulcer of other part of right lower leg with fat layer exposed; I87.2 Venous insufficiency (chronic) (peripheral); I89.0 Lymphedema, not elsewhere classified
CPT/HCPCS: 29581

== ENCOUNTER 2020-11-17 10:16 | Outpatient (CLI) | payer MEDICARE ==
[2020-11-17] MEDS ORDERED: LIDOCAINE (4%) 40 MG/ML TOPICAL SOLN 50 ML BOTTLE TP ONE (10:35)
== END 2020-11-17 10:17 | disposition home or self-care (01) ==
LOC: WOUND 10:16
PROVIDERS: ATTEND Surgery
DX: I87.311 Chronic venous hypertension (idiopathic) with ulcer of right lower extremity (principal); L97.812 Non-pressure chronic ulcer of other part of right lower leg with fat layer exposed; I87.2 Venous insufficiency (chronic) (peripheral); I89.0 Lymphedema, not elsewhere classified
CPT/HCPCS: 29581

== ENCOUNTER 2020-11-24 08:37 | Outpatient (CLI) | payer MEDICARE ==
[2020-11-24] MEDS ORDERED: LIDOCAINE (4%) 40 MG/ML TOPICAL SOLN 50 ML BOTTLE TP ONE (08:41)
== END 2020-11-24 08:38 | disposition home or self-care (01) ==
LOC: WOUND 08:37
PROVIDERS: ATTEND Surgery
DX: I87.311 Chronic venous hypertension (idiopathic) with ulcer of right lower extremity (principal); L97.812 Non-pressure chronic ulcer of other part of right lower leg with fat layer exposed; I87.2 Venous insufficiency (chronic) (peripheral); I89.0 Lymphedema, not elsewhere classified
CPT/HCPCS: 29581

== ENCOUNTER 2020-12-01 08:42 | Outpatient (CLI) | payer MEDICARE ==
[2020-12-01] MEDS ORDERED: LIDOCAINE (4%) 40 MG/ML TOPICAL SOLN 50 ML BOTTLE TP ONE (09:00)
== END 2020-12-01 08:43 | disposition home or self-care (01) ==
LOC: WOUND 08:42
PROVIDERS: ATTEND Surgery
DX: I87.311 Chronic venous hypertension (idiopathic) with ulcer of right lower extremity (principal); L97.812 Non-pressure chronic ulcer of other part of right lower leg with fat layer exposed; I87.2 Venous insufficiency (chronic) (peripheral); I89.0 Lymphedema, not elsewhere classified
CPT/HCPCS: 29581

== ENCOUNTER 2020-12-08 08:32 | Outpatient (CLI) | payer MEDICARE ==
[2020-12-08] MEDS ORDERED: LIDOCAINE (4%) 40 MG/ML TOPICAL SOLN 50 ML BOTTLE TP SCH (09:00)
== END 2020-12-08 08:33 | disposition home or self-care (01) ==
LOC: WOUND 08:32
PROVIDERS: ATTEND Surgery
DX: I87.311 Chronic venous hypertension (idiopathic) with ulcer of right lower extremity (principal); L97.812 Non-pressure chronic ulcer of other part of right lower leg with fat layer exposed; I87.2 Venous insufficiency (chronic) (peripheral); I89.0 Lymphedema, not elsewhere classified
CPT/HCPCS: 29581

== ENCOUNTER 2020-12-15 08:31 | Outpatient (CLI) | payer MEDICARE ==
[2020-12-15] MEDS ORDERED: LIDOCAINE (4%) 40 MG/ML TOPICAL SOLN 50 ML BOTTLE TP ONE (08:38)
== END 2020-12-15 08:32 | disposition home or self-care (01) ==
LOC: WOUND 08:31
PROVIDERS: ATTEND Surgery
DX: I87.311 Chronic venous hypertension (idiopathic) with ulcer of right lower extremity (principal); L97.812 Non-pressure chronic ulcer of other part of right lower leg with fat layer exposed; I89.0 Lymphedema, not elsewhere classified
CPT/HCPCS: 29581

== ENCOUNTER 2020-12-22 08:25 | Outpatient (CLI) | payer MEDICARE ==
[2020-12-22] MEDS ORDERED: LIDOCAINE (4%) 40 MG/ML TOPICAL SOLN 50 ML BOTTLE TP ONE (08:31)
== END 2020-12-22 08:26 | disposition home or self-care (01) ==
LOC: WOUND 08:25
PROVIDERS: ATTEND Surgery
DX: I87.311 Chronic venous hypertension (idiopathic) with ulcer of right lower extremity (principal); L97.812 Non-pressure chronic ulcer of other part of right lower leg with fat layer exposed; I89.0 Lymphedema, not elsewhere classified
CPT/HCPCS: 29581

== ENCOUNTER 2020-12-29 08:24 | Outpatient (CLI) | payer MEDICARE ==
[2020-12-29] MEDS ORDERED: LIDOCAINE (4%) 40 MG/ML TOPICAL SOLN 50 ML BOTTLE TP SCH (09:00)
== END 2020-12-29 08:25 | disposition home or self-care (01) ==
LOC: WOUND 08:24
PROVIDERS: ATTEND Surgery
DX: I87.311 Chronic venous hypertension (idiopathic) with ulcer of right lower extremity (principal); L97.812 Non-pressure chronic ulcer of other part of right lower leg with fat layer exposed; I89.0 Lymphedema, not elsewhere classified
CPT/HCPCS: 29581

== ENCOUNTER 2021-01-05 08:37 | Outpatient (CLI) | payer MEDICARE | END 2021-01-05 08:38 | disposition home or self-care (01) | LOC: WOUND 08:37 | PROVIDERS: ATTEND Surgery | DX: I87.311 Chronic venous hypertension (idiopathic) with ulcer of right lower extremity (principal); L97.812 Non-pressure chronic ulcer of other part of right lower leg with fat layer exposed; I89.0 Lymphedema, not elsewhere classified | CPT/HCPCS: 29581 ==

== ENCOUNTER 2021-01-12 08:38 | Outpatient (CLI) | payer MEDICARE | END 2021-01-12 08:39 | disposition home or self-care (01) | LOC: WOUND 08:38 | PROVIDERS: ATTEND Surgery | DX: I87.311 Chronic venous hypertension (idiopathic) with ulcer of right lower extremity (principal); L97.812 Non-pressure chronic ulcer of other part of right lower leg with fat layer exposed; I89.0 Lymphedema, not elsewhere classified | CPT/HCPCS: 29581 ==

== ENCOUNTER 2021-01-18 08:44 | Outpatient (CLI) | payer MEDICARE ==
[2021-01-18] MEDS ORDERED: LIDOCAINE (4%) 40 MG/ML TOPICAL SOLN 50 ML BOTTLE TP ONE (09:33)
== END 2021-01-18 08:45 | disposition home or self-care (01) ==
LOC: WOUND 08:44
PROVIDERS: ATTEND Surgery
DX: I87.311 Chronic venous hypertension (idiopathic) with ulcer of right lower extremity (principal); L97.812 Non-pressure chronic ulcer of other part of right lower leg with fat layer exposed; I89.0 Lymphedema, not elsewhere classified
CPT/HCPCS: 29581

== ENCOUNTER 2021-01-26 10:15 | Outpatient (CLI) | payer MEDICARE ==
[2021-01-26] MEDS ORDERED: LIDOCAINE (4%) 40 MG/ML TOPICAL SOLN 50 ML BOTTLE TP SCH (10:30)
== END 2021-01-26 10:16 | disposition home or self-care (01) ==
LOC: WOUND 10:15
PROVIDERS: ATTEND Surgery
DX: I87.311 Chronic venous hypertension (idiopathic) with ulcer of right lower extremity (principal); L97.812 Non-pressure chronic ulcer of other part of right lower leg with fat layer exposed; I89.0 Lymphedema, not elsewhere classified; I87.2 Venous insufficiency (chronic) (peripheral); E66.01 Morbid (severe) obesity due to excess calories; Z68.45 Body mass index [BMI] 70 or greater, adult
CPT/HCPCS: 29581

== ENCOUNTER 2021-02-02 08:45 | Outpatient (CLI) | payer MEDICARE | END 2021-02-02 08:46 | disposition home or self-care (01) | LOC: WOUND 08:45 | PROVIDERS: ATTEND Surgery | DX: I87.311 Chronic venous hypertension (idiopathic) with ulcer of right lower extremity (principal); L97.812 Non-pressure chronic ulcer of other part of right lower leg with fat layer exposed; I89.0 Lymphedema, not elsewhere classified; E66.01 Morbid (severe) obesity due to excess calories; Z68.45 Body mass index [BMI] 70 or greater, adult | CPT/HCPCS: 29581 ==

== ENCOUNTER 2021-02-09 08:49 | Outpatient (CLI) | payer MEDICARE ==
[2021-02-09] MEDS ORDERED: LIDOCAINE (4%) 40 MG/ML TOPICAL SOLN 50 ML BOTTLE TP SCH (09:00)
== END 2021-02-09 08:50 | disposition home or self-care (01) ==
LOC: WOUND 08:49
PROVIDERS: ATTEND Surgery
DX: I87.311 Chronic venous hypertension (idiopathic) with ulcer of right lower extremity (principal); L97.812 Non-pressure chronic ulcer of other part of right lower leg with fat layer exposed; I89.0 Lymphedema, not elsewhere classified; E66.01 Morbid (severe) obesity due to excess calories; Z68.45 Body mass index [BMI] 70 or greater, adult
CPT/HCPCS: 29581

== ENCOUNTER 2021-02-16 08:21 | Outpatient (CLI) | payer MEDICARE ==
[2021-02-16] MEDS ORDERED: LIDOCAINE (4%) 40 MG/ML TOPICAL SOLN 50 ML BOTTLE TP ONE (08:32)
== END 2021-02-16 08:22 | disposition home or self-care (01) ==
LOC: WOUND 08:21
PROVIDERS: ATTEND Surgery
DX: I87.311 Chronic venous hypertension (idiopathic) with ulcer of right lower extremity (principal); L97.812 Non-pressure chronic ulcer of other part of right lower leg with fat layer exposed; I89.0 Lymphedema, not elsewhere classified; E66.01 Morbid (severe) obesity due to excess calories; Z68.45 Body mass index [BMI] 70 or greater, adult
CPT/HCPCS: 29581

== ENCOUNTER 2021-02-23 08:24 | Outpatient (CLI) | payer MEDICARE ==
[2021-02-23] MEDS ORDERED: LIDOCAINE (4%) 40 MG/ML TOPICAL SOLN 50 ML BOTTLE TP ONE (08:27)
== END 2021-02-23 08:25 | disposition home or self-care (01) ==
LOC: WOUND 08:24
PROVIDERS: ATTEND Surgery
DX: I87.311 Chronic venous hypertension (idiopathic) with ulcer of right lower extremity (principal); L97.812 Non-pressure chronic ulcer of other part of right lower leg with fat layer exposed; L84 Corns and callosities; I89.0 Lymphedema, not elsewhere classified; E66.01 Morbid (severe) obesity due to excess calories; Z68.45 Body mass index [BMI] 70 or greater, adult
CPT/HCPCS: 29581

== ENCOUNTER 2021-03-02 08:41 | Outpatient (CLI) | payer MEDICARE ==
[2021-03-02] MEDS ORDERED: LIDOCAINE (4%) 40 MG/ML TOPICAL SOLN 50 ML BOTTLE TP ONE (08:43)
== END 2021-03-02 08:42 | disposition home or self-care (01) ==
LOC: WOUND 08:41
PROVIDERS: ATTEND Surgery
DX: I87.311 Chronic venous hypertension (idiopathic) with ulcer of right lower extremity (principal); L97.812 Non-pressure chronic ulcer of other part of right lower leg with fat layer exposed; L84 Corns and callosities; I89.0 Lymphedema, not elsewhere classified; E66.01 Morbid (severe) obesity due to excess calories; Z68.45 Body mass index [BMI] 70 or greater, adult
CPT/HCPCS: 29581

== ENCOUNTER 2021-03-09 08:39 | Outpatient (CLI) | payer MEDICARE ==
[2021-03-09] MEDS ORDERED: LIDOCAINE (4%) 40 MG/ML TOPICAL SOLN 50 ML BOTTLE TP ONE (09:13)
== END 2021-03-09 08:40 | disposition home or self-care (01) ==
LOC: WOUND 08:39
PROVIDERS: ATTEND Surgery
DX: I87.311 Chronic venous hypertension (idiopathic) with ulcer of right lower extremity (principal); L97.812 Non-pressure chronic ulcer of other part of right lower leg with fat layer exposed; L84 Corns and callosities; I89.0 Lymphedema, not elsewhere classified; E66.01 Morbid (severe) obesity due to excess calories; Z68.45 Body mass index [BMI] 70 or greater, adult
CPT/HCPCS: 29581

== ENCOUNTER 2021-03-16 08:35 | Outpatient (CLI) | payer MEDICARE ==
[2021-03-16] MEDS ORDERED: LIDOCAINE (4%) 40 MG/ML TOPICAL SOLN 50 ML BOTTLE TP ONE (08:41)
== END 2021-03-16 08:36 | disposition home or self-care (01) ==
LOC: WOUND 08:35
PROVIDERS: ATTEND Surgery
DX: I87.311 Chronic venous hypertension (idiopathic) with ulcer of right lower extremity (principal); L97.812 Non-pressure chronic ulcer of other part of right lower leg with fat layer exposed; L84 Corns and callosities; I89.0 Lymphedema, not elsewhere classified; I87.2 Venous insufficiency (chronic) (peripheral); E66.01 Morbid (severe) obesity due to excess calories; Z68.45 Body mass index [BMI] 70 or greater, adult
CPT/HCPCS: 29581

== ENCOUNTER 2021-03-23 08:39 | Outpatient (CLI) | payer MEDICARE ==
[2021-03-23] MEDS ORDERED: LIDOCAINE (4%) 40 MG/ML TOPICAL SOLN 50 ML BOTTLE TP ONE (08:46)
== END 2021-03-23 08:40 | disposition home or self-care (01) ==
LOC: WOUND 08:39
PROVIDERS: ATTEND Surgery
DX: I87.311 Chronic venous hypertension (idiopathic) with ulcer of right lower extremity (principal); L97.812 Non-pressure chronic ulcer of other part of right lower leg with fat layer exposed; L84 Corns and callosities; I89.0 Lymphedema, not elsewhere classified; I87.2 Venous insufficiency (chronic) (peripheral); E66.01 Morbid (severe) obesity due to excess calories; Z68.45 Body mass index [BMI] 70 or greater, adult
CPT/HCPCS: 29581

== ENCOUNTER 2021-03-30 08:37 | Outpatient (CLI) | payer MEDICARE ==
[2021-03-30] MEDS ORDERED: LIDOCAINE (4%) 40 MG/ML TOPICAL SOLN 50 ML BOTTLE TP ONE (09:27)
== END 2021-03-30 08:38 | disposition home or self-care (01) ==
LOC: WOUND 08:37
PROVIDERS: ATTEND Surgery
DX: I87.311 Chronic venous hypertension (idiopathic) with ulcer of right lower extremity (principal); L97.812 Non-pressure chronic ulcer of other part of right lower leg with fat layer exposed; L84 Corns and callosities; I87.302 Chronic venous hypertension (idiopathic) without complications of left lower extremity; I89.0 Lymphedema, not elsewhere classified
CPT/HCPCS: 29581

== ENCOUNTER 2021-04-06 08:52 | Outpatient (CLI) | payer MEDICARE | END 2021-04-06 08:53 | disposition home or self-care (01) | LOC: WOUND 08:52 | PROVIDERS: ATTEND Surgery | DX: I87.311 Chronic venous hypertension (idiopathic) with ulcer of right lower extremity (principal); L97.812 Non-pressure chronic ulcer of other part of right lower leg with fat layer exposed; L84 Corns and callosities; I89.0 Lymphedema, not elsewhere classified; I87.2 Venous insufficiency (chronic) (peripheral); E66.01 Morbid (severe) obesity due to excess calories; Z68.45 Body mass index [BMI] 70 or greater, adult | CPT/HCPCS: 29581 ==

== ENCOUNTER 2021-04-13 08:54 | Outpatient (CLI) | payer MEDICARE | END 2021-04-13 08:55 | disposition home or self-care (01) | LOC: WOUND 08:54 | PROVIDERS: ATTEND Surgery | DX: I87.311 Chronic venous hypertension (idiopathic) with ulcer of right lower extremity (principal); L97.812 Non-pressure chronic ulcer of other part of right lower leg with fat layer exposed; L84 Corns and callosities; I10 Essential (primary) hypertension; I89.0 Lymphedema, not elsewhere classified; I87.2 Venous insufficiency (chronic) (peripheral); E66.01 Morbid (severe) obesity due to excess calories; Z68.45 Body mass index [BMI] 70 or greater, adult | CPT/HCPCS: 29581 ==

== ENCOUNTER 2021-07-13 09:26 | Outpatient (CLI) | payer MEDICARE | END 2021-07-13 09:27 | disposition home or self-care (01) | LOC: WOUND 09:26 | PROVIDERS: ATTEND Surgery | DX: I87.311 Chronic venous hypertension (idiopathic) with ulcer of right lower extremity (principal); L97.812 Non-pressure chronic ulcer of other part of right lower leg with fat layer exposed; L84 Corns and callosities; I11.0 Hypertensive heart disease with heart failure; I50.9 Heart failure, unspecified; J44.9 Chronic obstructive pulmonary disease, unspecified; I89.0 Lymphedema, not elsewhere classified; I87.2 Venous insufficiency (chronic) (peripheral); E66.01 Morbid (severe) obesity due to excess calories; F41.9 Anxiety disorder, unspecified; F40.240 Claustrophobia; F32.9 Major depressive disorder, single episode, unspecified; Z68.45 Body mass index [BMI] 70 or greater, adult; Z87.891 Personal history of nicotine dependence | CPT/HCPCS: 11042; 11045; G0463; 29581; 99214 ==

== ENCOUNTER 2021-07-20 10:25 | Outpatient (CLI) | payer MEDICARE ==
[2021-07-20] MEDS ORDERED: LIDOCAINE (4%) 40 MG/ML TOPICAL SOLN 50 ML BOTTLE TP SCH (12:00)
== END 2021-07-20 10:26 | disposition home or self-care (01) ==
LOC: WOUND 10:25
PROVIDERS: ATTEND Surgery
DX: I87.311 Chronic venous hypertension (idiopathic) with ulcer of right lower extremity (principal); L97.812 Non-pressure chronic ulcer of other part of right lower leg with fat layer exposed; L84 Corns and callosities; I87.302 Chronic venous hypertension (idiopathic) without complications of left lower extremity; I11.0 Hypertensive heart disease with heart failure; I50.9 Heart failure, unspecified; J44.9 Chronic obstructive pulmonary disease, unspecified; I89.0 Lymphedema, not elsewhere classified; I87.2 Venous insufficiency (chronic) (peripheral); F41.9 Anxiety disorder, unspecified; F40.240 Claustrophobia; F32.9 Major depressive disorder, single episode, unspecified; E66.01 Morbid (severe) obesity due to excess calories; Z68.45 Body mass index [BMI] 70 or greater, adult; Z87.891 Personal history of nicotine dependence

== ENCOUNTER 2021-07-27 09:25 | Outpatient (CLI) | payer MEDICARE ==
[2021-07-27] MEDS ORDERED: LIDOCAINE (4%) 40 MG/ML TOPICAL SOLN 50 ML BOTTLE TP ONE (09:31)
== END 2021-07-27 09:26 | disposition home or self-care (01) ==
LOC: WOUND 09:25
PROVIDERS: ATTEND Surgery
DX: I87.311 Chronic venous hypertension (idiopathic) with ulcer of right lower extremity (principal); L97.812 Non-pressure chronic ulcer of other part of right lower leg with fat layer exposed; L84 Corns and callosities; I87.302 Chronic venous hypertension (idiopathic) without complications of left lower extremity; I11.0 Hypertensive heart disease with heart failure; I50.9 Heart failure, unspecified; J44.9 Chronic obstructive pulmonary disease, unspecified; I89.0 Lymphedema, not elsewhere classified; I87.2 Venous insufficiency (chronic) (peripheral); F41.9 Anxiety disorder, unspecified; F40.240 Claustrophobia; F32.9 Major depressive disorder, single episode, unspecified; E66.01 Morbid (severe) obesity due to excess calories; Z68.45 Body mass index [BMI] 70 or greater, adult; Z87.891 Personal history of nicotine dependence

== ENCOUNTER 2021-08-03 08:55 | Outpatient (CLI) | payer MEDICARE ==
[2021-08-03] MEDS ORDERED: LIDOCAINE (4%) 40 MG/ML TOPICAL SOLN 50 ML BOTTLE TP ONE (09:27)
== END 2021-08-03 08:56 | disposition home or self-care (01) ==
LOC: WOUND 08:55
PROVIDERS: ATTEND Surgery
DX: I87.311 Chronic venous hypertension (idiopathic) with ulcer of right lower extremity (principal); L97.812 Non-pressure chronic ulcer of other part of right lower leg with fat layer exposed; L84 Corns and callosities; I87.302 Chronic venous hypertension (idiopathic) without complications of left lower extremity; I11.0 Hypertensive heart disease with heart failure; I50.9 Heart failure, unspecified; J44.9 Chronic obstructive pulmonary disease, unspecified; I89.0 Lymphedema, not elsewhere classified; I87.2 Venous insufficiency (chronic) (peripheral); F41.9 Anxiety disorder, unspecified; F40.240 Claustrophobia; F32.9 Major depressive disorder, single episode, unspecified; E66.01 Morbid (severe) obesity due to excess calories; Z68.45 Body mass index [BMI] 70 or greater, adult; Z87.891 Personal history of nicotine dependence
CPT/HCPCS: 29581

== ENCOUNTER 2021-08-10 08:55 | Outpatient (CLI) | payer MEDICARE ==
[2021-08-10] MEDS ORDERED: LIDOCAINE (4%) 40 MG/ML TOPICAL SOLN 50 ML BOTTLE TP ONE (08:57)
== END 2021-08-10 08:56 | disposition home or self-care (01) ==
LOC: WOUND 08:55
PROVIDERS: ATTEND Surgery
DX: I87.311 Chronic venous hypertension (idiopathic) with ulcer of right lower extremity (principal); L97.812 Non-pressure chronic ulcer of other part of right lower leg with fat layer exposed; L84 Corns and callosities; I87.302 Chronic venous hypertension (idiopathic) without complications of left lower extremity; I11.0 Hypertensive heart disease with heart failure; I50.9 Heart failure, unspecified; J44.9 Chronic obstructive pulmonary disease, unspecified; I89.0 Lymphedema, not elsewhere classified; I87.2 Venous insufficiency (chronic) (peripheral); F41.9 Anxiety disorder, unspecified; F40.240 Claustrophobia; F32.9 Major depressive disorder, single episode, unspecified; E66.01 Morbid (severe) obesity due to excess calories; Z68.45 Body mass index [BMI] 70 or greater, adult; Z87.891 Personal history of nicotine dependence

== ENCOUNTER 2021-08-17 09:07 | Outpatient (CLI) | payer MEDICARE ==
[2021-08-17] MEDS ORDERED: LIDOCAINE (4%) 40 MG/ML TOPICAL SOLN 50 ML BOTTLE TP ONE (09:30)
== END 2021-08-17 09:08 | disposition home or self-care (01) ==
LOC: WOUND 09:07
PROVIDERS: ATTEND Surgery
DX: I87.311 Chronic venous hypertension (idiopathic) with ulcer of right lower extremity (principal); L97.812 Non-pressure chronic ulcer of other part of right lower leg with fat layer exposed; L84 Corns and callosities; I87.302 Chronic venous hypertension (idiopathic) without complications of left lower extremity; I11.0 Hypertensive heart disease with heart failure; I50.9 Heart failure, unspecified; J44.9 Chronic obstructive pulmonary disease, unspecified; I89.0 Lymphedema, not elsewhere classified; I87.2 Venous insufficiency (chronic) (peripheral); F41.9 Anxiety disorder, unspecified; F40.240 Claustrophobia; F32.9 Major depressive disorder, single episode, unspecified; E66.01 Morbid (severe) obesity due to excess calories; Z68.45 Body mass index [BMI] 70 or greater, adult; Z87.891 Personal history of nicotine dependence
CPT/HCPCS: 29581

== ENCOUNTER 2021-08-31 08:36 | Outpatient (CLI) | payer MEDICARE ==
[2021-08-31] MEDS ORDERED: LIDOCAINE (4%) 40 MG/ML TOPICAL SOLN 50 ML BOTTLE TP SCH (09:00)
== END 2021-08-31 08:37 | disposition home or self-care (01) ==
LOC: WOUND 08:36
PROVIDERS: ATTEND Surgery
DX: I87.311 Chronic venous hypertension (idiopathic) with ulcer of right lower extremity (principal); L97.812 Non-pressure chronic ulcer of other part of right lower leg with fat layer exposed; L84 Corns and callosities; I87.302 Chronic venous hypertension (idiopathic) without complications of left lower extremity; I11.0 Hypertensive heart disease with heart failure; I50.9 Heart failure, unspecified; J44.9 Chronic obstructive pulmonary disease, unspecified; I89.0 Lymphedema, not elsewhere classified; I87.2 Venous insufficiency (chronic) (peripheral); E66.01 Morbid (severe) obesity due to excess calories; F41.9 Anxiety disorder, unspecified; F40.240 Claustrophobia; F32.9 Major depressive disorder, single episode, unspecified; Z68.45 Body mass index [BMI] 70 or greater, adult; Z87.891 Personal history of nicotine dependence
CPT/HCPCS: 29581

== ENCOUNTER 2021-09-07 09:06 | Outpatient (CLI) | payer MEDICARE ==
[2021-09-07] MEDS ORDERED: LIDOCAINE (4%) 40 MG/ML TOPICAL SOLN 50 ML BOTTLE TP ONE (09:36)
== END 2021-09-07 09:07 | disposition home or self-care (01) ==
LOC: WOUND 09:06
PROVIDERS: ATTEND Surgery
DX: I87.311 Chronic venous hypertension (idiopathic) with ulcer of right lower extremity (principal); L97.812 Non-pressure chronic ulcer of other part of right lower leg with fat layer exposed; L84 Corns and callosities; I87.302 Chronic venous hypertension (idiopathic) without complications of left lower extremity; I11.0 Hypertensive heart disease with heart failure; I50.9 Heart failure, unspecified; J44.9 Chronic obstructive pulmonary disease, unspecified; I89.0 Lymphedema, not elsewhere classified; I87.2 Venous insufficiency (chronic) (peripheral); E66.01 Morbid (severe) obesity due to excess calories; F41.9 Anxiety disorder, unspecified; F40.240 Claustrophobia; F32.9 Major depressive disorder, single episode, unspecified; Z68.45 Body mass index [BMI] 70 or greater, adult; Z87.891 Personal history of nicotine dependence
CPT/HCPCS: 29581

== ENCOUNTER 2021-09-14 09:14 | Outpatient (CLI) | payer MEDICARE ==
[2021-09-14] MEDS ORDERED: LIDOCAINE (4%) 40 MG/ML TOPICAL SOLN 50 ML BOTTLE TP ONE (09:31)
== END 2021-09-14 09:15 | disposition home or self-care (01) ==
LOC: WOUND 09:14
PROVIDERS: ATTEND Surgery
DX: I87.311 Chronic venous hypertension (idiopathic) with ulcer of right lower extremity (principal); L97.812 Non-pressure chronic ulcer of other part of right lower leg with fat layer exposed; L84 Corns and callosities; I87.302 Chronic venous hypertension (idiopathic) without complications of left lower extremity; I11.0 Hypertensive heart disease with heart failure; I50.9 Heart failure, unspecified; J44.9 Chronic obstructive pulmonary disease, unspecified; I89.0 Lymphedema, not elsewhere classified; I87.2 Venous insufficiency (chronic) (peripheral); E66.01 Morbid (severe) obesity due to excess calories; F41.9 Anxiety disorder, unspecified; F40.240 Claustrophobia; F32.9 Major depressive disorder, single episode, unspecified; Z68.45 Body mass index [BMI] 70 or greater, adult; Z87.891 Personal history of nicotine dependence
CPT/HCPCS: 29581

== ENCOUNTER 2021-09-21 09:03 | Outpatient (CLI) | payer MEDICARE ==
[2021-09-21] MEDS ORDERED: LIDOCAINE (4%) 40 MG/ML TOPICAL SOLN 50 ML BOTTLE TP SCH (10:00)
== END 2021-09-21 09:04 | disposition home or self-care (01) ==
LOC: WOUND 09:03
PROVIDERS: ATTEND Surgery
DX: I87.311 Chronic venous hypertension (idiopathic) with ulcer of right lower extremity (principal); L97.812 Non-pressure chronic ulcer of other part of right lower leg with fat layer exposed; L84 Corns and callosities; I87.302 Chronic venous hypertension (idiopathic) without complications of left lower extremity; I11.0 Hypertensive heart disease with heart failure; I50.9 Heart failure, unspecified; J44.9 Chronic obstructive pulmonary disease, unspecified; I89.0 Lymphedema, not elsewhere classified; I87.2 Venous insufficiency (chronic) (peripheral); E66.01 Morbid (severe) obesity due to excess calories; F41.9 Anxiety disorder, unspecified; F40.240 Claustrophobia; F32.9 Major depressive disorder, single episode, unspecified; Z68.45 Body mass index [BMI] 70 or greater, adult; Z87.891 Personal history of nicotine dependence
CPT/HCPCS: 29581

== ENCOUNTER 2021-09-28 08:58 | Outpatient (CLI) | payer MEDICARE ==
[2021-09-28] MEDS ORDERED: LIDOCAINE (4%) 40 MG/ML TOPICAL SOLN 50 ML BOTTLE TP ONE (09:26)
== END 2021-09-28 08:59 | disposition home or self-care (01) ==
LOC: WOUND 08:58
PROVIDERS: ATTEND Surgery
DX: I87.311 Chronic venous hypertension (idiopathic) with ulcer of right lower extremity (principal); L97.812 Non-pressure chronic ulcer of other part of right lower leg with fat layer exposed; L84 Corns and callosities; I87.302 Chronic venous hypertension (idiopathic) without complications of left lower extremity; I11.0 Hypertensive heart disease with heart failure; I50.9 Heart failure, unspecified; J44.9 Chronic obstructive pulmonary disease, unspecified; I89.0 Lymphedema, not elsewhere classified; I87.2 Venous insufficiency (chronic) (peripheral); F41.9 Anxiety disorder, unspecified; F40.240 Claustrophobia; F32.9 Major depressive disorder, single episode, unspecified; E66.01 Morbid (severe) obesity due to excess calories; Z68.45 Body mass index [BMI] 70 or greater, adult; Z87.891 Personal history of nicotine dependence
CPT/HCPCS: 29581

== ENCOUNTER 2021-10-05 08:56 | Outpatient (CLI) | payer MEDICARE ==
[2021-10-05] MEDS ORDERED: LIDOCAINE (4%) 40 MG/ML TOPICAL SOLN 50 ML BOTTLE TP ONE (09:11)
== END 2021-10-05 08:57 | disposition home or self-care (01) ==
LOC: WOUND 08:56
PROVIDERS: ATTEND Surgery
DX: I87.311 Chronic venous hypertension (idiopathic) with ulcer of right lower extremity (principal); L97.812 Non-pressure chronic ulcer of other part of right lower leg with fat layer exposed; L84 Corns and callosities; I87.302 Chronic venous hypertension (idiopathic) without complications of left lower extremity; I11.0 Hypertensive heart disease with heart failure; I50.9 Heart failure, unspecified; J44.9 Chronic obstructive pulmonary disease, unspecified; I89.0 Lymphedema, not elsewhere classified; I87.2 Venous insufficiency (chronic) (peripheral); F41.9 Anxiety disorder, unspecified; F40.240 Claustrophobia; F32.9 Major depressive disorder, single episode, unspecified; E66.01 Morbid (severe) obesity due to excess calories; Z68.45 Body mass index [BMI] 70 or greater, adult; Z87.891 Personal history of nicotine dependence
CPT/HCPCS: 29581

== ENCOUNTER 2021-10-12 10:08 | Outpatient (CLI) | payer MEDICARE ==
[2021-10-12] MEDS ORDERED: LIDOCAINE (4%) 40 MG/ML TOPICAL SOLN 50 ML BOTTLE TP ONE (10:13)
== END 2021-10-12 10:09 | disposition home or self-care (01) ==
LOC: WOUND 10:08
PROVIDERS: ATTEND Surgery
DX: I87.311 Chronic venous hypertension (idiopathic) with ulcer of right lower extremity (principal); L97.812 Non-pressure chronic ulcer of other part of right lower leg with fat layer exposed; L84 Corns and callosities; I87.302 Chronic venous hypertension (idiopathic) without complications of left lower extremity; I11.0 Hypertensive heart disease with heart failure; I50.9 Heart failure, unspecified; J44.9 Chronic obstructive pulmonary disease, unspecified; I89.0 Lymphedema, not elsewhere classified; I87.2 Venous insufficiency (chronic) (peripheral); F41.9 Anxiety disorder, unspecified; F40.240 Claustrophobia; F32.9 Major depressive disorder, single episode, unspecified; E66.01 Morbid (severe) obesity due to excess calories; Z68.45 Body mass index [BMI] 70 or greater, adult; Z87.891 Personal history of nicotine dependence
CPT/HCPCS: 29581

== ENCOUNTER 2021-10-19 08:57 | Outpatient (CLI) | payer MEDICARE ==
[2021-10-19] MEDS ORDERED: LIDOCAINE (4%) 40 MG/ML TOPICAL SOLN 50 ML BOTTLE TP ONE (09:02)
== END 2021-10-19 08:58 | disposition home or self-care (01) ==
LOC: WOUND 08:57
PROVIDERS: ATTEND Surgery
DX: I87.311 Chronic venous hypertension (idiopathic) with ulcer of right lower extremity (principal); L97.812 Non-pressure chronic ulcer of other part of right lower leg with fat layer exposed; L84 Corns and callosities; I87.302 Chronic venous hypertension (idiopathic) without complications of left lower extremity; I11.0 Hypertensive heart disease with heart failure; I50.9 Heart failure, unspecified; J44.9 Chronic obstructive pulmonary disease, unspecified; I89.0 Lymphedema, not elsewhere classified; I87.2 Venous insufficiency (chronic) (peripheral); F41.9 Anxiety disorder, unspecified; F40.240 Claustrophobia; F32.9 Major depressive disorder, single episode, unspecified; E66.01 Morbid (severe) obesity due to excess calories; Z68.45 Body mass index [BMI] 70 or greater, adult; Z87.891 Personal history of nicotine dependence

== ENCOUNTER 2021-10-26 08:43 | Outpatient (CLI) | payer MEDICARE ==
[2021-10-26] MEDS ORDERED: LIDOCAINE (4%) 40 MG/ML TOPICAL SOLN 50 ML BOTTLE TP ONE (08:46)
== END 2021-10-26 08:44 | disposition home or self-care (01) ==
LOC: WOUND 08:43
PROVIDERS: ATTEND Surgery
DX: I87.311 Chronic venous hypertension (idiopathic) with ulcer of right lower extremity (principal); L97.812 Non-pressure chronic ulcer of other part of right lower leg with fat layer exposed; L84 Corns and callosities; I87.302 Chronic venous hypertension (idiopathic) without complications of left lower extremity; I11.0 Hypertensive heart disease with heart failure; I50.9 Heart failure, unspecified; J44.9 Chronic obstructive pulmonary disease, unspecified; I89.0 Lymphedema, not elsewhere classified; I87.2 Venous insufficiency (chronic) (peripheral); F41.9 Anxiety disorder, unspecified; F40.240 Claustrophobia; F32.9 Major depressive disorder, single episode, unspecified; E66.01 Morbid (severe) obesity due to excess calories; Z68.45 Body mass index [BMI] 70 or greater, adult; Z87.891 Personal history of nicotine dependence
CPT/HCPCS: 16020; 29581

== ENCOUNTER 2021-11-09 08:58 | Outpatient (CLI) | payer MEDICARE ==
[2021-11-09] MEDS ORDERED: LIDOCAINE (4%) 40 MG/ML TOPICAL SOLN 50 ML BOTTLE TP ONE (09:01)
== END 2021-11-09 08:59 | disposition home or self-care (01) ==
LOC: WOUND 08:58
PROVIDERS: ATTEND Surgery
DX: I87.311 Chronic venous hypertension (idiopathic) with ulcer of right lower extremity (principal); L97.812 Non-pressure chronic ulcer of other part of right lower leg with fat layer exposed; L84 Corns and callosities; I87.302 Chronic venous hypertension (idiopathic) without complications of left lower extremity; I11.0 Hypertensive heart disease with heart failure; I50.9 Heart failure, unspecified; J44.9 Chronic obstructive pulmonary disease, unspecified; I89.0 Lymphedema, not elsewhere classified; I87.2 Venous insufficiency (chronic) (peripheral); F41.9 Anxiety disorder, unspecified; F40.240 Claustrophobia; F32.9 Major depressive disorder, single episode, unspecified; E66.01 Morbid (severe) obesity due to excess calories; Z68.45 Body mass index [BMI] 70 or greater, adult; Z87.891 Personal history of nicotine dependence
CPT/HCPCS: 29581

== ENCOUNTER 2021-11-16 08:59 | Outpatient (CLI) | payer MEDICARE ==
[2021-11-16] MEDS ORDERED: LIDOCAINE (4%) 40 MG/ML TOPICAL SOLN 50 ML BOTTLE TP ONE (09:06)
== END 2021-11-16 09:00 | disposition home or self-care (01) ==
LOC: WOUND 08:59
PROVIDERS: ATTEND Surgery
DX: I87.311 Chronic venous hypertension (idiopathic) with ulcer of right lower extremity (principal); L97.812 Non-pressure chronic ulcer of other part of right lower leg with fat layer exposed; I87.302 Chronic venous hypertension (idiopathic) without complications of left lower extremity; L84 Corns and callosities; I11.0 Hypertensive heart disease with heart failure; I50.9 Heart failure, unspecified; J44.9 Chronic obstructive pulmonary disease, unspecified; I89.0 Lymphedema, not elsewhere classified; I87.2 Venous insufficiency (chronic) (peripheral); F41.9 Anxiety disorder, unspecified; F40.240 Claustrophobia; F32.9 Major depressive disorder, single episode, unspecified; E66.01 Morbid (severe) obesity due to excess calories; Z68.45 Body mass index [BMI] 70 or greater, adult; Z87.891 Personal history of nicotine dependence
CPT/HCPCS: 29581

== ENCOUNTER 2021-11-30 09:12 | Outpatient (CLI) | payer MEDICARE ==
[2021-11-30] MEDS ORDERED: LIDOCAINE (4%) 40 MG/ML TOPICAL SOLN 50 ML BOTTLE TP ONE (10:12)
== END 2021-11-30 09:13 | disposition home or self-care (01) ==
LOC: WOUND 09:12
PROVIDERS: ATTEND Surgery
DX: I87.311 Chronic venous hypertension (idiopathic) with ulcer of right lower extremity (principal); L97.812 Non-pressure chronic ulcer of other part of right lower leg with fat layer exposed; I87.302 Chronic venous hypertension (idiopathic) without complications of left lower extremity; L84 Corns and callosities; I11.0 Hypertensive heart disease with heart failure; I50.9 Heart failure, unspecified; J44.9 Chronic obstructive pulmonary disease, unspecified; I89.0 Lymphedema, not elsewhere classified; I87.2 Venous insufficiency (chronic) (peripheral); F41.9 Anxiety disorder, unspecified; F40.240 Claustrophobia; F32.9 Major depressive disorder, single episode, unspecified; E66.01 Morbid (severe) obesity due to excess calories; Z68.45 Body mass index [BMI] 70 or greater, adult; Z87.891 Personal history of nicotine dependence
CPT/HCPCS: 29581

== ENCOUNTER 2021-12-07 09:04 | Outpatient (CLI) | payer MEDICARE ==
[2021-12-07] MEDS ORDERED: LIDOCAINE (4%) 40 MG/ML TOPICAL SOLN 50 ML BOTTLE TP ONE (10:05)
== END 2021-12-07 09:05 | disposition home or self-care (01) ==
LOC: WOUND 09:04
PROVIDERS: ATTEND Surgery
DX: I87.311 Chronic venous hypertension (idiopathic) with ulcer of right lower extremity (principal); L97.812 Non-pressure chronic ulcer of other part of right lower leg with fat layer exposed; I87.2 Venous insufficiency (chronic) (peripheral); I11.0 Hypertensive heart disease with heart failure; I50.9 Heart failure, unspecified; I89.0 Lymphedema, not elsewhere classified; J44.9 Chronic obstructive pulmonary disease, unspecified; Z87.891 Personal history of nicotine dependence; Z79.899 Other long term (current) drug therapy
CPT/HCPCS: 29581

== ENCOUNTER 2021-12-14 09:01 | Outpatient (CLI) | payer MEDICARE ==
[2021-12-14] MEDS ORDERED: LIDOCAINE (4%) 40 MG/ML TOPICAL SOLN 50 ML BOTTLE TP ONE (09:11)
== END 2021-12-14 09:02 | disposition home or self-care (01) ==
LOC: WOUND 09:01
PROVIDERS: ATTEND Surgery
DX: I87.311 Chronic venous hypertension (idiopathic) with ulcer of right lower extremity (principal); L97.812 Non-pressure chronic ulcer of other part of right lower leg with fat layer exposed; I87.2 Venous insufficiency (chronic) (peripheral); I11.0 Hypertensive heart disease with heart failure; I50.9 Heart failure, unspecified; I89.0 Lymphedema, not elsewhere classified; J44.9 Chronic obstructive pulmonary disease, unspecified; Z87.891 Personal history of nicotine dependence; Z79.899 Other long term (current) drug therapy
CPT/HCPCS: 29581

== ENCOUNTER 2021-12-21 09:38 | Outpatient (CLI) | payer MEDICARE | END 2021-12-21 09:39 | disposition home or self-care (01) | LOC: WOUND 09:38 | PROVIDERS: ATTEND Surgery | DX: I87.311 Chronic venous hypertension (idiopathic) with ulcer of right lower extremity (principal); L97.812 Non-pressure chronic ulcer of other part of right lower leg with fat layer exposed; I87.2 Venous insufficiency (chronic) (peripheral); I11.0 Hypertensive heart disease with heart failure; I50.9 Heart failure, unspecified; I89.0 Lymphedema, not elsewhere classified; J44.9 Chronic obstructive pulmonary disease, unspecified; Z87.891 Personal history of nicotine dependence; Z79.899 Other long term (current) drug therapy | CPT/HCPCS: 29581 ==

== ENCOUNTER 2021-12-28 09:09 | Outpatient (CLI) | payer MEDICARE ==
[2021-12-28] MEDS ORDERED: LIDOCAINE (4%) 40 MG/ML TOPICAL SOLN 50 ML BOTTLE TP SCH (10:00)
== END 2021-12-28 09:10 | disposition home or self-care (01) ==
LOC: WOUND 09:09
PROVIDERS: ATTEND Surgery
DX: I87.311 Chronic venous hypertension (idiopathic) with ulcer of right lower extremity (principal); L97.812 Non-pressure chronic ulcer of other part of right lower leg with fat layer exposed; I87.2 Venous insufficiency (chronic) (peripheral); I11.0 Hypertensive heart disease with heart failure; I50.9 Heart failure, unspecified; I89.0 Lymphedema, not elsewhere classified; J44.9 Chronic obstructive pulmonary disease, unspecified; Z87.891 Personal history of nicotine dependence; Z79.899 Other long term (current) drug therapy
CPT/HCPCS: 29581

== ENCOUNTER 2022-01-04 09:01 | Outpatient (CLI) | payer MEDICARE ==
[2022-01-04] MEDS ORDERED: LIDOCAINE (4%) 40 MG/ML TOPICAL SOLN 50 ML BOTTLE TP ONE (09:07)
== END 2022-01-04 09:02 | disposition home or self-care (01) ==
LOC: WOUND 09:01
PROVIDERS: ATTEND Surgery
DX: I87.311 Chronic venous hypertension (idiopathic) with ulcer of right lower extremity (principal); L97.812 Non-pressure chronic ulcer of other part of right lower leg with fat layer exposed; I87.2 Venous insufficiency (chronic) (peripheral); I11.0 Hypertensive heart disease with heart failure; I50.9 Heart failure, unspecified; I89.0 Lymphedema, not elsewhere classified; J44.9 Chronic obstructive pulmonary disease, unspecified; Z87.891 Personal history of nicotine dependence; Z79.899 Other long term (current) drug therapy
CPT/HCPCS: 29581

== ENCOUNTER 2022-01-11 09:15 | Outpatient (CLI) | payer MEDICARE ==
[2022-01-11] MEDS ORDERED: LIDOCAINE (4%) 40 MG/ML TOPICAL SOLN 50 ML BOTTLE TP SCH (10:30)
== END 2022-01-11 09:16 | disposition home or self-care (01) ==
LOC: WOUND 09:15
PROVIDERS: ATTEND Surgery
DX: I87.311 Chronic venous hypertension (idiopathic) with ulcer of right lower extremity (principal); L97.812 Non-pressure chronic ulcer of other part of right lower leg with fat layer exposed; E66.01 Morbid (severe) obesity due to excess calories; I89.0 Lymphedema, not elsewhere classified; J44.9 Chronic obstructive pulmonary disease, unspecified; I11.0 Hypertensive heart disease with heart failure; I50.9 Heart failure, unspecified; Z68.45 Body mass index [BMI] 70 or greater, adult; Z93.0 Tracheostomy status; Z79.899 Other long term (current) drug therapy; Z87.891 Personal history of nicotine dependence
CPT/HCPCS: 29581

== ENCOUNTER 2022-01-25 09:32 | Outpatient (CLI) | payer MEDICARE ==
[2022-01-25] MEDS ORDERED: LIDOCAINE (4%) 40 MG/ML TOPICAL SOLN 50 ML BOTTLE TP ONE (09:41)
== END 2022-01-25 09:33 | disposition home or self-care (01) ==
LOC: WOUND 09:32
PROVIDERS: ATTEND Surgery
DX: I87.311 Chronic venous hypertension (idiopathic) with ulcer of right lower extremity (principal); L97.812 Non-pressure chronic ulcer of other part of right lower leg with fat layer exposed; I89.0 Lymphedema, not elsewhere classified; J44.9 Chronic obstructive pulmonary disease, unspecified; I11.0 Hypertensive heart disease with heart failure; I50.9 Heart failure, unspecified; E66.01 Morbid (severe) obesity due to excess calories; Z68.45 Body mass index [BMI] 70 or greater, adult; Z93.0 Tracheostomy status; Z79.899 Other long term (current) drug therapy; Z87.891 Personal history of nicotine dependence
CPT/HCPCS: 29581

== ENCOUNTER 2022-02-01 09:40 | Outpatient (CLI) | payer MEDICARE ==
[2022-02-01] MEDS ORDERED: LIDOCAINE (4%) 40 MG/ML TOPICAL SOLN 50 ML BOTTLE TP ONE (09:55)
== END 2022-02-01 09:41 | disposition home or self-care (01) ==
LOC: WOUND 09:40
PROVIDERS: ATTEND Surgery
DX: I87.311 Chronic venous hypertension (idiopathic) with ulcer of right lower extremity (principal); L97.812 Non-pressure chronic ulcer of other part of right lower leg with fat layer exposed; I89.0 Lymphedema, not elsewhere classified; I11.0 Hypertensive heart disease with heart failure; I50.9 Heart failure, unspecified; J44.9 Chronic obstructive pulmonary disease, unspecified; E66.01 Morbid (severe) obesity due to excess calories; Z68.45 Body mass index [BMI] 70 or greater, adult; Z79.899 Other long term (current) drug therapy; Z87.891 Personal history of nicotine dependence; Z93.0 Tracheostomy status
CPT/HCPCS: 29581

== ENCOUNTER 2022-02-15 08:57 | Outpatient (CLI) | payer MEDICARE ==
[2022-02-15] MEDS ORDERED: LIDOCAINE (4%) 40 MG/ML TOPICAL SOLN 50 ML BOTTLE TP ONE (10:48)
== END 2022-02-15 08:58 | disposition home or self-care (01) ==
LOC: WOUND 08:57
PROVIDERS: ATTEND Surgery
DX: I87.311 Chronic venous hypertension (idiopathic) with ulcer of right lower extremity (principal); L97.812 Non-pressure chronic ulcer of other part of right lower leg with fat layer exposed; I89.0 Lymphedema, not elsewhere classified; I11.0 Hypertensive heart disease with heart failure; I50.9 Heart failure, unspecified; J44.9 Chronic obstructive pulmonary disease, unspecified; E66.01 Morbid (severe) obesity due to excess calories; Z68.45 Body mass index [BMI] 70 or greater, adult; Z87.891 Personal history of nicotine dependence; Z79.899 Other long term (current) drug therapy; Z93.0 Tracheostomy status
CPT/HCPCS: 29581

== ENCOUNTER 2022-02-22 08:53 | Outpatient (CLI) | payer MEDICARE ==
[2022-02-22] MEDS ORDERED: LIDOCAINE (4%) 40 MG/ML TOPICAL SOLN 50 ML BOTTLE TP ONE (08:57)
== END 2022-02-22 08:54 | disposition home or self-care (01) ==
LOC: WOUND 08:53
PROVIDERS: ATTEND Surgery
DX: I87.311 Chronic venous hypertension (idiopathic) with ulcer of right lower extremity (principal); L97.812 Non-pressure chronic ulcer of other part of right lower leg with fat layer exposed; I11.0 Hypertensive heart disease with heart failure; I50.9 Heart failure, unspecified; I89.0 Lymphedema, not elsewhere classified; J44.9 Chronic obstructive pulmonary disease, unspecified; E66.01 Morbid (severe) obesity due to excess calories; Z68.45 Body mass index [BMI] 70 or greater, adult; Z79.899 Other long term (current) drug therapy; Z87.891 Personal history of nicotine dependence; Z93.0 Tracheostomy status
CPT/HCPCS: 29581

== ENCOUNTER 2022-03-01 09:09 | Outpatient (CLI) | payer MEDICARE ==
[2022-03-01] MEDS ORDERED: LIDOCAINE (4%) 40 MG/ML TOPICAL SOLN 50 ML BOTTLE TP ONE (09:15)
== END 2022-03-01 09:10 | disposition home or self-care (01) ==
LOC: WOUND 09:09
PROVIDERS: ATTEND Surgery
DX: I87.311 Chronic venous hypertension (idiopathic) with ulcer of right lower extremity (principal); L97.812 Non-pressure chronic ulcer of other part of right lower leg with fat layer exposed; I11.0 Hypertensive heart disease with heart failure; I50.9 Heart failure, unspecified; I89.0 Lymphedema, not elsewhere classified; J44.9 Chronic obstructive pulmonary disease, unspecified; E66.01 Morbid (severe) obesity due to excess calories; Z68.45 Body mass index [BMI] 70 or greater, adult; Z79.899 Other long term (current) drug therapy; Z87.891 Personal history of nicotine dependence; Z93.0 Tracheostomy status
CPT/HCPCS: 29581

== ENCOUNTER 2022-03-08 08:54 | Outpatient (CLI) | payer MEDICARE ==
[2022-03-08] MEDS ORDERED: LIDOCAINE (4%) 40 MG/ML TOPICAL SOLN 50 ML BOTTLE TP ONE (09:07)
== END 2022-03-08 08:55 | disposition home or self-care (01) ==
LOC: WOUND 08:54
PROVIDERS: ATTEND Surgery
DX: I87.311 Chronic venous hypertension (idiopathic) with ulcer of right lower extremity (principal); L97.812 Non-pressure chronic ulcer of other part of right lower leg with fat layer exposed; I11.0 Hypertensive heart disease with heart failure; I50.9 Heart failure, unspecified; J44.9 Chronic obstructive pulmonary disease, unspecified; I89.0 Lymphedema, not elsewhere classified; E66.01 Morbid (severe) obesity due to excess calories; Z68.45 Body mass index [BMI] 70 or greater, adult; Z87.891 Personal history of nicotine dependence; Z79.899 Other long term (current) drug therapy
CPT/HCPCS: 29581

== ENCOUNTER 2022-03-15 09:11 | Outpatient (CLI) | payer MEDICARE ==
[2022-03-15] MEDS ORDERED: LIDOCAINE (4%) 40 MG/ML TOPICAL SOLN 50 ML BOTTLE TP SCH (09:30)
== END 2022-03-15 09:12 | disposition home or self-care (01) ==
LOC: WOUND 09:11
PROVIDERS: ATTEND Surgery
DX: I87.311 Chronic venous hypertension (idiopathic) with ulcer of right lower extremity (principal); L97.812 Non-pressure chronic ulcer of other part of right lower leg with fat layer exposed; I11.0 Hypertensive heart disease with heart failure; I50.9 Heart failure, unspecified; J44.9 Chronic obstructive pulmonary disease, unspecified; I89.0 Lymphedema, not elsewhere classified; E66.01 Morbid (severe) obesity due to excess calories; Z87.891 Personal history of nicotine dependence; Z79.899 Other long term (current) drug therapy
CPT/HCPCS: 29581

== ENCOUNTER 2022-03-22 09:46 | Outpatient (CLI) | payer MEDICARE ==
[2022-03-22] MEDS ORDERED: LIDOCAINE (4%) 40 MG/ML TOPICAL SOLN 50 ML BOTTLE TP SCH (10:30)
== END 2022-03-22 09:47 | disposition home or self-care (01) ==
LOC: WOUND 09:46
PROVIDERS: ATTEND Surgery
DX: I87.311 Chronic venous hypertension (idiopathic) with ulcer of right lower extremity (principal); L97.812 Non-pressure chronic ulcer of other part of right lower leg with fat layer exposed; I11.0 Hypertensive heart disease with heart failure; I50.9 Heart failure, unspecified; J44.9 Chronic obstructive pulmonary disease, unspecified; I89.0 Lymphedema, not elsewhere classified; E66.01 Morbid (severe) obesity due to excess calories; Z68.45 Body mass index [BMI] 70 or greater, adult; Z87.891 Personal history of nicotine dependence; Z79.899 Other long term (current) drug therapy

== ENCOUNTER 2022-04-07 08:57 | Outpatient (CLI) | payer MEDICARE ==
[2022-04-07] MEDS ORDERED: LIDOCAINE (4%) 40 MG/ML TOPICAL SOLN 50 ML BOTTLE TP ONE (09:10)
== END 2022-04-07 08:58 | disposition home or self-care (01) ==
LOC: WOUND 08:57
PROVIDERS: ATTEND Surgery
DX: I87.311 Chronic venous hypertension (idiopathic) with ulcer of right lower extremity (principal); L97.812 Non-pressure chronic ulcer of other part of right lower leg with fat layer exposed; I11.0 Hypertensive heart disease with heart failure; I50.9 Heart failure, unspecified; J44.9 Chronic obstructive pulmonary disease, unspecified; E66.01 Morbid (severe) obesity due to excess calories; Z68.45 Body mass index [BMI] 70 or greater, adult; Z87.891 Personal history of nicotine dependence; Z98.890 Other specified postprocedural states; Z79.899 Other long term (current) drug therapy
CPT/HCPCS: 29581

== ENCOUNTER 2022-04-14 09:13 | Outpatient (CLI) | payer MEDICARE ==
[2022-04-14] MEDS ORDERED: LIDOCAINE (4%) 40 MG/ML TOPICAL SOLN 50 ML BOTTLE TP ONE (09:26)
== END 2022-04-14 09:14 | disposition home or self-care (01) ==
LOC: WOUND 09:13
PROVIDERS: ATTEND Surgery
DX: I87.311 Chronic venous hypertension (idiopathic) with ulcer of right lower extremity (principal); L97.812 Non-pressure chronic ulcer of other part of right lower leg with fat layer exposed; I11.0 Hypertensive heart disease with heart failure; I50.9 Heart failure, unspecified; J44.9 Chronic obstructive pulmonary disease, unspecified; E66.01 Morbid (severe) obesity due to excess calories; Z68.45 Body mass index [BMI] 70 or greater, adult; Z87.891 Personal history of nicotine dependence; Z79.899 Other long term (current) drug therapy
CPT/HCPCS: 29581

== ENCOUNTER 2022-05-22 10:45 | Outpatient (CLI) | payer MEDICARE ==
[2022-05-22] MEDS ORDERED: LIDOCAINE (4%) 40 MG/ML TOPICAL SOLN 50 ML BOTTLE TP ONE (11:33)
== END 2022-05-22 10:46 | disposition home or self-care (01) ==
LOC: WOUND 10:45
PROVIDERS: ATTEND Surgery
DX: I87.311 Chronic venous hypertension (idiopathic) with ulcer of right lower extremity (principal); L97.812 Non-pressure chronic ulcer of other part of right lower leg with fat layer exposed; I11.0 Hypertensive heart disease with heart failure; I50.9 Heart failure, unspecified; J44.9 Chronic obstructive pulmonary disease, unspecified; I89.0 Lymphedema, not elsewhere classified; E66.01 Morbid (severe) obesity due to excess calories; Z68.45 Body mass index [BMI] 70 or greater, adult; Z87.891 Personal history of nicotine dependence; Z79.899 Other long term (current) drug therapy

== ENCOUNTER 2022-06-02 13:55 | Outpatient (CLI) | payer MEDICARE ==
[2022-06-02] MEDS ORDERED: LIDOCAINE (4%) 40 MG/ML TOPICAL SOLN 50 ML BOTTLE TP ONE (14:05)
== END 2022-06-02 13:56 | disposition home or self-care (01) ==
LOC: WOUND 13:55
PROVIDERS: ATTEND Surgery
DX: I87.311 Chronic venous hypertension (idiopathic) with ulcer of right lower extremity (principal); L97.812 Non-pressure chronic ulcer of other part of right lower leg with fat layer exposed; I11.0 Hypertensive heart disease with heart failure; I50.9 Heart failure, unspecified; J44.9 Chronic obstructive pulmonary disease, unspecified; I89.0 Lymphedema, not elsewhere classified; E66.01 Morbid (severe) obesity due to excess calories; Z68.45 Body mass index [BMI] 70 or greater, adult; Z87.891 Personal history of nicotine dependence; Z79.899 Other long term (current) drug therapy
CPT/HCPCS: 29581

== ENCOUNTER 2022-06-09 10:50 | Outpatient (CLI) | payer MEDICARE ==
[2022-06-09] MEDS ORDERED: LIDOCAINE (4%) 40 MG/ML TOPICAL SOLN 50 ML BOTTLE TP NR (12:00)
== END 2022-06-09 10:51 | disposition home or self-care (01) ==
LOC: WOUND 10:50
PROVIDERS: ATTEND Surgery
DX: I87.311 Chronic venous hypertension (idiopathic) with ulcer of right lower extremity (principal); L97.812 Non-pressure chronic ulcer of other part of right lower leg with fat layer exposed; I11.0 Hypertensive heart disease with heart failure; I50.9 Heart failure, unspecified; J44.9 Chronic obstructive pulmonary disease, unspecified; I89.0 Lymphedema, not elsewhere classified; E66.01 Morbid (severe) obesity due to excess calories; Z68.45 Body mass index [BMI] 70 or greater, adult; Z87.891 Personal history of nicotine dependence; Z79.899 Other long term (current) drug therapy
CPT/HCPCS: 29581

== ENCOUNTER 2022-06-30 09:43 | Outpatient (CLI) | payer MEDICARE | END 2022-06-30 09:44 | disposition home or self-care (01) | LOC: WOUND 09:43 | PROVIDERS: ATTEND Surgery | DX: I87.311 Chronic venous hypertension (idiopathic) with ulcer of right lower extremity (principal); L97.811 Non-pressure chronic ulcer of other part of right lower leg limited to breakdown of skin; I11.0 Hypertensive heart disease with heart failure; I50.9 Heart failure, unspecified; J44.9 Chronic obstructive pulmonary disease, unspecified; I89.0 Lymphedema, not elsewhere classified; E66.01 Morbid (severe) obesity due to excess calories; Z68.45 Body mass index [BMI] 70 or greater, adult; Z87.891 Personal history of nicotine dependence; Z79.899 Other long term (current) drug therapy | CPT/HCPCS: 99213; G0463 ==

== ENCOUNTER 2022-07-07 08:51 | Outpatient (CLI) | payer MEDICARE | END 2022-07-07 08:52 | disposition home or self-care (01) | LOC: WOUND 08:51 | PROVIDERS: ATTEND Surgery | DX: I87.311 Chronic venous hypertension (idiopathic) with ulcer of right lower extremity (principal); L97.811 Non-pressure chronic ulcer of other part of right lower leg limited to breakdown of skin; I11.0 Hypertensive heart disease with heart failure; I50.9 Heart failure, unspecified; J44.9 Chronic obstructive pulmonary disease, unspecified; I89.0 Lymphedema, not elsewhere classified; E66.01 Morbid (severe) obesity due to excess calories; Z68.45 Body mass index [BMI] 70 or greater, adult; Z87.891 Personal history of nicotine dependence; Z79.899 Other long term (current) drug therapy | CPT/HCPCS: 99212; G0463 ==